=== PATIENT | male | born 1945 | race Caucasian/White ===

== ENCOUNTER 2025-03-23 15:14 | Inpatient (IN) | payer MEDICARE, BC, SELFPAY ==
[2025-03-23] VITALS (7 sets, daily range): BP systolic 111–121; BP diastolic 60–76; PULSE 66–75; RESP 16–99; TEMP 36.2–36.8; O2SAT 96–99
--- NOTE | 2025-03-23 15:17 | EKG_ITS ---
[facility] Test Date: 2025-03-23 Pat Name: CHINTAN RAZO Department: Room: - Gender: Male Medical Assistant Prn: : 1945 Requested By: Wilfrid Mcfarlane Order Number: [id number] Reading MD: Wilfrid Mcfarlane Measurements Intervals [place] Rate: 69 P: 97 UT: 177 QRS: -56 QRSD: 120 T: 72 QT: 374 QTc: 402 Interpretive Statements SINUS RHYTHM LEFT AXIS DEVIATION [QRS AXIS < -30] RIGHT BUNDLE BRANCH BLOCK [120+ ms QRS DURATION, UPRIGHT V1, 40+ ms S IN I/aVL/V4/V5/V6] No previous ECG available for comparison /[id number]/[id number]
--- NOTE | 2025-03-23 15:17 | XR_ITS ---
EXAMINATION: AP chest single view TECHNIQUE: AP portable upright chest single view Date and time: April 09, 2025, 1534 hours INDICATIONS: Coughing beginning 3 days ago. FINDINGS: Early bibasilar pneumonia. 9 mm pulmonary nodule right lower lung zone. Normal heart size CABG Prominent osteopenia IMPRESSION: Early bibasilar pneumonia
[2025-03-23] MEDS: SODIUM CHLORIDE 0.9% 1000 ML 1,000 ML 999 ML IV (15:29)
[2025-03-23 16:02] LABS: Basophils # (Auto) 0.0 Thou/mm3 (0.0-0.2); Basophils % (Auto) 0 % (0-2.5); Eosinophils # (Auto) 0.0 Thou/mm3 (0.0-0.5); Eosinophils % (Auto) 0 % (0-10); Hematocrit 27.9 % (41.0-53.0); Hemoglobin 9.0 g/dL (13.5-16.0); Immature Granulocytes Auto 0.07 Thou/mm3 (0.00-0.00); Lymphocytes # (Auto) 1.5 Thou/mm3 (1.0-4.8); Lymphocytes % (Auto) 10 % (10-50); Mean Corpuscular HGB Conc 32.3 g/dl (31.0-37.0); Mean Corpuscular Hemoglobin 29.0 pg (25.0-35.0); Mean Corpuscular Volume 90 fL (80-100); Monocytes # (Auto) 1.1 Thou/mm3 (0.0-0.8); Monocytes % (Auto) 7 % (0-12); Neutrophils # (Auto) 12.1 Thou/mm3 (1.8-7.7); Neutrophils % (Auto) 82 % (37-80); Nucleated Red Blood Cell # 0.00 Thou/mm3 (0.00-0.00); Nucleated Red Blood Cell % 0 /100 WBC (0); Platelet Count 557 Thou/mm3 (140-440); RDW Standard Deviation 45.3 fL (35.1-43.9); Red Blood Count 3.10 Miln/mm3 (4.50-5.90); White Blood Count 14.8 Thou/mm3 (3.8-10.6)
[2025-03-23 16:29] LABS: Alanine Aminotransferase 11 U/L (10-49); Albumin, Serum 3.2 gm/dL (3.4-4.8); Albumin/Globulin Ratio 1.4 (1.2-2.2); Alkaline Phosphatase 219 U/L (46-116); Anion Gap 10 (7-16); Aspartate Amino Transferase 52 U/L (0-34); BUN/Creatinine Ratio 23 Ratio (12-20); Bilirubin,Total < 0.2 mg/dL (0.3-1.2); Blood Urea Nitrogen 89 mg/dL (9-23); Calcium 8.0 mg/dL (8.3-10.6); Calcium (Corrected) 8.6 mg/dL (8.5-10.1); Carbon Dioxide 19.0 mMol/L (20.0-31.0); Chloride 113 mMol/L (98-107); Creatinine (Component) 3.9 mg/dL (0.6-1.3); Globulin 2.3 gm/dL (2.3-3.5); Glucose 185 mg/dL (74-106); Osmolality,Calculated 315 (275-295); Potassium 4.6 mMol/L (3.4-5.1); Sodium 142 mMol/L (136-145); Total Protein 5.5 gm/dL (5.7-8.2); eGFR 15 See Note
[2025-03-23 16:30] LABS: INR 1.2 (0.9-1.3); Partial Thromboplastin Time 34.2 Seconds (22.0-36.0); Prothrombin Time 12.3 Seconds (9.0-12.2)
[2025-03-23 16:31] LABS: Troponin I 0.066 ng/mL (0.0-0.045)
--- NOTE | 2025-03-23 16:53 | EDNOTE_ITS ---
ED General RME/HPI General Chief complaint: General Adult/Misc Complain Stated complaint: HYPOTENSION Time Seen by Provider: 03/23/25 15:16 Arrival date/time: 03/23/25 15:14 Limitations: no limitations RME / HPI RME / HPI narrative: 79 year old male with history of Parkinson's disease, TIA, CAD s/p CABG, CKD, anemia in CKD, hyperkalemia presents to the ED BIBA from [facility] for abnormal labs. Per medics, [place] reported patient had recent outpatient labs performed and were called today stating he may need dialysis for acute kidney injury. In the ED, patient has no complaints. Reports no change in fluid intake or output. Per medics, on scene patient was hypotensive 94/62 and given ~ 150-200cc of Lactated Ringers with improvement to 118/63. Related Data Allergies Allergy/AdvReac Type Severity Reaction Status Date / Time No Known Allergies Allergy Verified 03/23/25 15:26 Review of Systems Review of Systems Systems Reviewed: All systems reviewed, normal except as documented Past Medical History Past Medical History NEUROLOGIC: Positive Parkinson's Disease CARDIAC: Positive Cardiac Disorders and Congestive Heart Failure (Not sure) GENITOURINARY: Positive Renal Disease ENT: Positive Deafness (Hard of Hearing) Family History FAMILY HISTORY: Positive Family Cardiac Disorders Surgical History SURGICAL: Positive Cardiac Surgery, Coronary Artery Bypass Graft and Coronary Stent Social History SMOKING STATUS: Never smoker ED Exam General Limitations: Present no limitations General appearance: Present alert, in no apparent distress and other (Elderly, appears fatigued) Head Head exam: Present atraumatic Eye Eye exam: Present normal appearance, PERRL and EOMI ENT ENT exam: Present normal exam, normal oropharynx and mucous membranes moist Neck Neck exam: Present normal inspection, full ROM and trachea midline Chest Chest inspection: Present normal inspection and symmetric chest wall rise Respiratory Respiratory exam: Present normal lung sounds bilaterally Cardiovascular Cardiovascular exam: Present regular rate, normal rhythm and normal heart sounds Abdominal Exam Abdominal exam: Present soft and normal bowel sounds Extremities Exam Extremities exam: Present normal inspection and full ROM Back Exam Back exam: Present normal inspection and full ROM Neurological Exam Neurological exam: Present alert, oriented X3 and CN II-XII intact Psychiatric Psychiatric exam: Present normal affect and normal mood Skin Skin exam: Present warm, dry, intact and normal color Course Quality Measures none Orders Category Date Time Status COVID-19 Screening Questionnaire NOW Care 03/23/25 17:40 Active 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 NOW Care 03/23/25 15:17 Active Continuous Pulse Oximetry NOW Care 03/23/25 15:17 Completed Decision to Admit X1 Care 03/23/25 17:39 Active EKG (ED ONLY) *Do not use* NOW Care 03/23/25 15:17 Completed Insert IV NOW Care 03/23/25 15:17 Active Consult to Nephrology Stat Cons 03/23/25 17:40 Ordered EKG (ED Only) Stat Exams 03/23/25 15:17 Draft XR chest 1V portable Stat Exams 03/23/25 15:17 Completed CBC Stat Lab 03/23/25 15:53 Completed Comprehensive Metabolic Panel Stat Lab 03/23/25 15:53 Completed Partial Thromboplastin Time Stat Lab 03/23/25 15:53 Completed Prothrombin Time with INR Stat Lab 03/23/25 15:53 Completed Troponin I Stat Lab 03/23/25 15:53 Completed Troponin I Stat Lab 03/23/25 17:30 Ordered Urinalysis, C/S if Indicated Stat Lab 03/23/25 15:17 Ordered Sodium Chloride 0.9% 1000 ml [Ns] 1,000 ml Med 03/23/25 15:17 Discontinued IV 999 mls/hr Oxygen Delivery NOW RT 03/23/25 15:17 Active Vital Signs Vital signs: Vital Signs Temperature 97.5 F 03/23/25 15:14 Pulse Rate 72 03/23/25 15:14 Respiratory Rate 17 03/23/25 15:14 Blood Pressure 118/63 03/23/25 15:14 Pulse Oximetry (%) 99 03/23/25 15:14 Oxygen Delivery Method Room Air 03/23/25 15:14 Pulse ox is 99% on room air which is adequate. Discharge Plan Plan Patient Disposition: Admit Acute Care w/in Hospital Prescriptions/Referrals Referrals: Gómez Holly MD [Primary Care Provider] - In 1 week Problem List Clinical Impression: BARRETT (acute kidney injury), Dehydration, Fatigue, Anemia Patient/Caregiver Discharge Instructions Print Language: Spanish Stand Alone Forms: Kristina Award Info., Patient Portal Info Letter MDM Narrative MDM hospital course (for use when minimal MDM required): Mary Camargo am scribing for and in the presence of Dr. Bah. Clinical Information Provided by: patient and EMS Medical Records reviewed [facility] Meds/Rx considered, not ordered None Labs/Rad/Tests considered, not ordered None Chronic Illness/Social Conditions which may negatively complicate care or outcome(s)-explain: penitentiary/debilitated EKG Interpretation EKG #1: EKG Interpretation: EKG @ 15:27. Interpreted by me, sinus rhythm, rate 69, left axis deviation, no STEMI. Labs Labs: interpreted by me Lab(s) Interpretation(s): WBC 14.8, creatinine 3.9, BUN 89, eGFR 15, troponin 0.066 Imaging Imaging Interpretation(s): Ordering Physician: Wilfrid Bah MD Date of Service: 03/23/25 Procedure(s): XR chest 1V portable Accession Number(s): [id number] cc: Wilfrid Bah MD; Franco Schrader MD~ EXAMINATION: AP chest single view TECHNIQUE: AP portable upright chest single view Date and time: April 09, 2025, 1534 hours INDICATIONS: Coughing beginning 3 days ago. FINDINGS: Early bibasilar pneumonia. 9 mm pulmonary nodule right lower lung zone. Normal heart size CABG Prominent osteopenia IMPRESSION: Early bibasilar pneumonia Dictated By: Franco Schrader MD Signed By: <Electronically signed by Franco Schrader MD in OV> 03/23/25 1543 Medication Administration(s) Medication Administration History Discontinued Medications Sodium Chloride (Ns) 1,000 mls @ 999 mls/hr IV .Q1H1M ONE Stop: 03/23/25 16:17 Last Admin: 03/23/25 15:29 Dose: 999 mls/hr Documented By: DO See above Consultations/Discussions re: Management Consult #1: Date/time: 03/23/25 5:40 pm Physician, specialty, service, details: I spoke with hospitalist team A for admission.
[2025-03-23 18:14] LABS: Troponin I 0.066 ng/mL (0.0-0.045)
--- NOTE | 2025-03-23 18:19 | ESHP_ITS ---
<Statement entered by Nubia Mccord MD - 03/24/25 08:03> Patient was seen and examined by me personally. I have directly supervised and reviewed documentation by the team resident and agree with its findings with any exceptions or additional findings as below. Plan of care was discussed with the attending, Dr. Carreno. Nubia Mccord, PGY-3 Documentation for date of: 03/23/25 HPI History of Present Illness Chief complaint: Sent in by raise miner, BARRETT on CKD. History of present illness: Mr Vargas is a 79-year-old male with PMH significant for Parkinson?s disease, CAD s/p CABG and coronary stents, CKD with recurrent episodes of hyperkalemia, anemia of CKD, and recent hospitalization 3?4 weeks ago at [facility] for hyperkalemia and fluid overload, now residing at [facility]. He was sent to the ED today after outpatient labs were reviewed by raise miner Dr. Gordon showing worsening kidney function with concern for possible need for dialysis. He arrives with no acute complaints. He denies shortness of breath, cough, chest pain, abdominal pain, nausea, vomiting, dysuria, or urinary frequency. He reports a chronic daily headache but no new or focal neurological symptoms. He notes no recent falls. He is a poor historian; much of the history is provided by his nephew, who is also his surrogate decision-maker. Per nephew, his kidney function has been worsening for 8 months with two prior episodes of severe hyperkalemia. He recently became weaker, had swelling and difficulty ambulating, and was hospitalized at [facility] for 5 days before being transferred to [facility] 2 weeks ago. He has been treated for a UTI at the facility for the last 3?4 days. Caregivers also report increasing hallucinations and waxing/waning alertness. In the ED, BP initially low but improved with a small fluid bolus. Labs show creatinine 3.9 (unknown baseline), BUN 89, CO2 19, WBC 14.8, and early bibasilar pneumonia on CXR. He denies burning with urination. He is alert and oriented to self, place, and year but intermittently confused. No lower extremity edema noted. He has a chronic sacral/buttock pressure ulcer under wound-care management. Review of system: all systems negative unless stated in HPI: positive for headache, intermittent confusion, and chronic tremor; negative for fever, chills, cough, SOB, chest pain, abdominal pain, dysuria, hematuria, vomiting, diarrhea, constipation, weakness, numbness, or new swelling. Past Medical History: * Neurologic: Parkinson?s disease * Cardiac: Coronary artery disease, status post coronary artery bypass graft (CABG) and coronary stents * Renal: Chronic kidney disease (CKD), recurrent hyperkalemia * Hematologic: Anemia in CKD Allergies: * No known drug allergies (NKDA) Medications: * Carbidopa/levodopa (for Parkinson?s disease) * Atorvastatin 20 mg daily (half of 40 mg tablet) * Plavix 75 mg daily * Vitamin B12 * Vitamin D Surgical History: * Cardiac surgery: Coronary artery bypass graft (CABG) and coronary stents, approximately 5-6 years ago * No other significant surgeries reported Exam Vital Signs Temp Pulse Resp BP Pulse Ox O2 Del Method 97.8 F 66 16 116/66 98 Room Air 03/23/25 17:37 03/23/25 17:37 03/23/25 17:37 03/23/25 17:37 03/23/25 17:37 03/23/25 17:37 Narrative Exam General: Elderly male, fatigued, no acute distress. Neuro: Alert to self, place, and year; intermittently confused. Parkinsonian tremor and mild rigidity. No focal deficits. HEENT: Normocephalic, atraumatic. PERRL. Oral mucosa moist. Neck: No JVD. Supple. Cardiac: Regular rate and rhythm. No murmurs/rubs/gallops. Lungs: Clear to auscultation bilaterally. No wheezes/rales/rhonchi. Abdomen: Soft, non-tender, nondistended. Normal bowel sounds. Extremities: No peripheral edema. Pulses intact. Skin: Warm, dry. Chronic pressure ulcer to intergluteal crease?no drainage. Psych: Pleasant, cooperative. Hallucinations per history but none active during exam. : No suprapubic tenderness. Results: Labs 03/24/25 04:41 03/24/25 04:41 Labs: Short CBC 03/23/25 Range/Units 15:53 WBC 14.8 H (3.8-10.6) Thou/mm3 Hgb 9.0 L (13.5-16.0) g/dL Hct 27.9 L (41.0-53.0) % Plt Count 557 H (140-440) Thou/mm3 BMP 03/23/25 15:53 Sodium 142 Potassium 4.6 Chloride 113 H Carbon Dioxide 19.0 L BUN 89 H Creatinine 3.9 H Glucose 185 H Calcium 8.0 L Cardiac Enzymes 03/23/25 03/23/25 Range/Units 15:53 17:36 Troponin I 0.066 H* 0.066 H* (0.0-0.045) ng/mL Liver Function 03/23/25 Range/Units 15:53 Total Bilirubin < 0.2 L (0.3-1.2) mg/dL AST 52 H (0-34) U/L ALT 11 (10-49) U/L Alkaline Phosphatase 219 H (46-116) U/L Albumin 3.2 L (3.4-4.8) gm/dL Quality Measures Quality Measures VTE prophylaxis Advance care planning discussed with:: patient and legal surragate (nephew) Medications Home Medications and Allergies Home Medications ?Medication ?Instructions ?Recorded ?Confirmed ?Type atorvastatin 40 mg tablet (Lipitor) 40 mg PO QPM 03/2303/23/25 History carbidopa 25 mg-levodopa 100 mg 1 tab PO TID 03/23/25 03/23/25 History tablet clopidogrel 75 mg tablet 75 mg PO QDAY 03/23/2503/23 History Allergies Allergy/AdvReac Type Severity Reaction Status Date / Time No Known Allergies Allergy Verified 03/23/25 15:26 Visit Medications Acetaminophen (Acetaminophen 325 Mg Tablet) 650 mg PO Q6H PRN PRN Reason: Fever >100.4 or pain Stop: 04/22/25 18:11 Sodium Chloride (Ns) 1,000 mls @ 75 mls/hr IV .[id number] AVELINA Stop: 04/22/25 18:14 Ceftriaxone Sodium/Dextrose (Rocephin/D5w 1gm Iv Premix) 1 gm in 50 mls @ 100 mls/hr IV QDAY AVELINA Stop: 03/30/25 18:15 Ondansetron HCl (Ondansetron Inj 2 Mg/Ml Inj 2 Ml) 4 mg IVP Q6H PRN; Protocol PRN Reason: NAUSEA OR VOMITING Stop: 04/22/25 18:11 Pantoprazole Sodium (Pantoprazole 40 Mg Tablet) 40 mg PO QDAY AVELINA Stop: 04/23/25 08:59 Discontinued Medications Acetaminophen (Acetaminophen 325 Mg Tablet) 325 mg PO X1 ONE Stop: 03/23/25 18:12 Heparin Sodium (Porcine) (Heparin Sod Inj 5000 Unit/Ml Vial) 5,000 unit SC Q12HR AVELINA Stop: 04/06/25 20:59 Sodium Chloride (Ns) 1,000 mls @ 999 mls/hr IV .Q1H1M ONE Stop: 03/23/25 16:17 Last Admin: 03/23/25 15:29 Dose: 999 mls/hr Assessment & Plan Plan 79-year-old male with Parkinson?s disease, CAD s/p CABG and stents, CKD, anemia in CKD, and recurrent hyperkalemia presenting from [facility] for abnormal outpatient labs concerning for BARRETT; patient is hemodynamically stable with waxing/waning mentation and evidence of possible UTI and early bibasilar pneumonia. # Acute Kidney Injury on Chronic Kidney Disease Likely pre-renal vs progression of CKD Creatinine 3.9, BUN 89, CO2 19; unclear baseline. No nephrotoxic meds. Hypotension on arrival improved with fluids. Plan: * Strict I/Os * Continue patient on IV fluid NS 75 mL/h. * Will monitor for fluid overload. * Trend BMP q24 hrs * Avoid nephrotoxic medications * Hold Plavix and heparin DVT prophylaxis in case dialysis catheter is needed * Nephrology consult (Dr. Gordon) * Consider dialysis pending nephrology evaluation # Urinary Tract Infection (UTI) # Leukocytosis (14.8) # Pneumonia, Unspecified (Early Bibasilar Pneumonia) History of UTI treatment started 3?4 days ago at facility. Denies dysuria; confusion may be related to infection. No cough/SOB but radiographic findings present. Plan: * Continue Rocephin 1 g IV daily (covers both UTI and CAP) * Add azithromycin if clinically worsening * UA with culture * Trend CBC * Monitor O2 saturation * Monitor mental status # Elevated troponin (0.066) Troponin remains low (repeat was the same value of 0.066), consistent with no acute myocardial injury or NSTEMI at this time. EKG normal sinus rhythm. Plan: * Continue monitoring for any chest pain or changes in vital signs * Repeat troponin in 6 hours. # Parkinson?s Disease On carbidopa/levodopa at home. Increased hallucinations per caregivers. Plan: * Resume home carbidopa/levodopa once med reconciliation completed * Treat underlying infections that might be contributing to confusion # Anemia in CKD Hgb 9.0. Chronic per history. Plan: * Trend CBC * Check iron panel, B12, folate if not previously done * Transfuse PRN Hgb <7 # Chronic Headache Daily headaches per patient; no red flag features. Plan: * Tylenol PRN * Avoid NSAIDs due to BARRETT # Coronary Artery Disease s/p CABG and stents On statin and Plavix at home. 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 Plan: * Gentle IV fluids as needed while avoiding volume overload * Orthostatic vitals * PT while inpatient # Chronic Pressure Ulcer Longstanding in sacral region; under wound care. Plan: * Wound care consult * Continue current dressings Health maintenance: Disposition: Admit to medicine for further management of BARRETT, possible dialysis, UTI, early pneumonia, and cognitive fluctuations. Feeding: Cardiac diet, NPO after midnight Fluids: NS 75 mL/h. Thromboprophylaxis: Hold Plavix and heparin DVT prophylaxis temporarily pending nephrology decision regarding dialysis catheter. GI Prophylaxis: Protonix Code Status: DNR; patient and surrogate decision-maker (nephew) have confirmed. ----- Plan discussed with attending physician Dr. Carreno and senior resident Dr. Suri Leo MD PGY-1 Internal Medicine Attending Provider Attestation/Addendum I have examined the patient, reviewed labs and imaging findings, discussed the case with the resident(s), and reviewed entered orders. I agree with the plan of care as outlined in this note, with these additional summaries/recommendations: After examination of the patient and review of the clinical data, I feel that this patient needs admission to the hospital for further treatment and evaluation. Patient is a 79-year-old male with a medical history of Parkinson's disease on carbidopa/levodopa, CAD status post CABG and stent placements, CKD, anemia, pressure ulcer, autonomic dysfunction, and chronic headaches presents to [facility] emergency department on 03/23/2025 with chief complaint of abnormal labs. Patient reports he was seen by raise miner who recommended patient come to the emergency room for acute kidney injury on CKD. At this time baseline creatinine unknown. Creatinine on admission 3.9 and BUN 89. We will start low-dose maintenance fluids for BARRETT component likely secondary to dehydration. Consult in-house nephrology, recommendations appreciated. Avoid nephrotoxic agents and renally dose medications. Patient was found to have elevated troponin most likely troponinemia secondary to renal disease. Per patient's POA, he is actively being treated for urinary tract infection at this time. Chest x-ray shows early bibasilar pneumonia. Start IV antibiotics and follow-up culture results. Resume home carbidopa/levodopa. Wound care and frequent pressure redistribution to prevent worsening pressure ulcer. Patient updated on the plan and agreement. All questions answered to satisfaction. Please see residents note for additional details and management. Dr. Ev MD
[2025-03-23] MEDS: ACETAMINOPHEN 325 MG TABLET PO (18:36)
[2025-03-23] MEDS: cefTRIAXone/D5w 1gm IV premix 1 GM/50 ML BAG IV (18:37)
[2025-03-23] MEDS: SODIUM CHLORIDE 0.9% 1000 ML 1,000 ML 75 ML IV (18:38)
[2025-03-23 19:19] LABS: Iron 12 mcg/dL (65-175); Percent Iron Saturation 8 % (20-55); Total Iron Binding Capacity 139 mcg/dL (250-425); Unsaturated Iron Binding 127 (225-295)
[2025-03-23 19:41] LABS: Hepatitis A Antibody IgM Non Reactive (Non React); Hepatitis B Core Antibody IgM Non Reactive (Non React); Hepatitis B Surface Antigen Non Reactive (Non React); Hepatitis C Antibody Non Reactive (Non React)
[2025-03-23] MEDS: ATORVASTATIN CALCIUM 20 MG TABLET PO (21:01)
[2025-03-24] VITALS (11 sets, daily range): BP systolic 105–162; BP diastolic 59–89; PULSE 57–92; RESP 9–99; TEMP 36.2–36.8; O2SAT 95–97
[2025-03-24 01:00] LABS: Troponin I 0.066 ng/mL (0.0-0.045)
[2025-03-24 06:32] LABS: Basophils # (Auto) 0.1 Thou/mm3 (0.0-0.2); Basophils % (Auto) 0 % (0-2.5); Eosinophils # (Auto) 0.2 Thou/mm3 (0.0-0.5); Eosinophils % (Auto) 2 % (0-10); Hematocrit 25.6 % (41.0-53.0); Hemoglobin 8.0 g/dL (13.5-16.0); Immature Granulocytes Auto 0.05 Thou/mm3 (0.00-0.00); Lymphocytes # (Auto) 2.2 Thou/mm3 (1.0-4.8); Lymphocytes % (Auto) 16 % (10-50); Mean Corpuscular HGB Conc 31.3 g/dl (31.0-37.0); Mean Corpuscular Hemoglobin 29.4 pg (25.0-35.0); Mean Corpuscular Volume 94 fL (80-100); Monocytes # (Auto) 1.0 Thou/mm3 (0.0-0.8); Monocytes % (Auto) 7 % (0-12); Neutrophils # (Auto) 10.4 Thou/mm3 (1.8-7.7); Neutrophils % (Auto) 74 % (37-80); Nucleated Red Blood Cell # 0.00 Thou/mm3 (0.00-0.00); Nucleated Red Blood Cell % 0 /100 WBC (0); Platelet Count 768 Thou/mm3 (140-440); RDW Standard Deviation 47.0 fL (35.1-43.9); Red Blood Count 2.72 Miln/mm3 (4.50-5.90); White Blood Count 14.0 Thou/mm3 (3.8-10.6)
[2025-03-24 06:51] LABS: Alanine Aminotransferase 12 U/L (10-49); Albumin, Serum 2.8 gm/dL (3.4-4.8); Albumin/Globulin Ratio 1.2 (1.2-2.2); Alkaline Phosphatase 179 U/L (46-116); Aspartate Amino Transferase 48 U/L (0-34); BUN/Creatinine Ratio 23 Ratio (12-20); Bilirubin,Total < 0.2 mg/dL (0.3-1.2); Blood Urea Nitrogen 81 mg/dL (9-23); Calcium 7.8 mg/dL (8.3-10.6); Calcium (Corrected) 8.8 mg/dL (8.5-10.1); Cardiac Risk Estimate 3.1 RATIO (4.0-6.7); Chloride 117 mMol/L (98-107); Cholesterol 65 mg/dL (132-200); Creatinine (Component) 3.6 mg/dL (0.6-1.3); Globulin 2.3 gm/dL (2.3-3.5); Glucose 84 mg/dL (74-106); HDL Cholesterol 21 mg/dL (40-60); LDL Cholesterol,Calculated 33 mg/dL (0-130); Magnesium 2.1 mg/dL (1.6-2.6); Osmolality,Calculated 315 (275-295); Phosphorous 3.8 mg/dL (2.4-5.1); Potassium 4.7 mMol/L (3.4-5.1); Sodium 147 mMol/L (136-145); Thyroid Stimulating Hormone 1.38 uIU/mL (0.55-4.78); Total Protein 5.1 gm/dL (5.7-8.2); Triglycerides 57 mg/dL (30-150); eGFR 17 See Note
[2025-03-24 06:56] LABS: Path Review Blood Smear Sent to Pathologist
[2025-03-24 07:00] LABS: Carbon Dioxide 16.9 mMol/L (20.0-31.0); Folate 9.03 ng/mL (>5.38); Vitamin B12 1495 pg/mL (211-911)
[2025-03-24 07:10] LABS: Anion Gap 13 (7-16)
[2025-03-24 07:14] LABS: Troponin I 0.067 ng/mL (0.0-0.045)
[2025-03-24] MEDS: CARBIDOPA/LEVODOPA 25/100 MG TABLET 1 TAB PO ×3 (08:17→21:52)
[2025-03-24] MEDS: ACETAMINOPHEN 325 MG TABLET 650 MG PO ×2 (08:18→20:18)
[2025-03-24] MEDS: cefTRIAXone/D5w 1gm IV premix 1 GM/50 ML BAG IV (08:18)
[2025-03-24] MEDS: PANTOPRAZOLE 40 MG TABLET PO (08:18)
[2025-03-24] MEDS: SODIUM CHLORIDE 0.9% 1000 ML 1,000 ML 75 ML IV (08:21)
--- NOTE | 2025-03-24 09:11 | ESCONSULT_ITS ---
HPI Data of Consult Consult date: 03/24/25 Requesting Physician: Catrachito Carreno MD Admitting Provider: Catrachito Carreno MD Attending Provider: Catrachito Carreno MD Primary Care Provider: Gómez Holly MD Consult Narrative Reason for consult: BARRETT on CKD History of present illness: Mr Vargas is a 79-year-old male with PMH significant for Parkinson?s disease, CAD s/p CABG and coronary stents, CKD with recurrent episodes of hyperkalemia, anemia of CKD, and recent hospitalization 3?4 weeks ago at [facility] for hyperkalemia and fluid overload, now residing at [facility]. He was sent to the ED today after outpatient labs were reviewed by surgery attendant Dr. Gordon showing worsening kidney function with concern for possible need for dialysis. He arrives with no acute complaints. He denies shortness of breath, cough, chest pain, abdominal pain, nausea, vomiting, dysuria, or urinary frequency. He reports a chronic daily headache but no new or focal neurological symptoms. He notes no recent falls. He is a poor historian; much of the history is provided by his nephew, who is also his surrogate decision-maker. Per nephew, his kidney function has been worsening for 8 months with two prior episodes of severe hyperkalemia. He recently became weaker, had swelling and difficulty ambulating, and was hospitalized at [facility] for 5 days before being transferred to [facility] 2 weeks ago. He has been treated for a UTI at the facility for the last 3?4 days. Caregivers also report increasing hallucinations and waxing/waning alertness. 03/24/25: Nephrology consulted for BARRETT on CKD. Patient is relatively new to outpatient office and unclear creatinine baseline or kidney function. Per primary team is requesting records from [facility] admission. Patient seen examined at bedside. No complaints. Denies chest pain, palpitations, urinary symptoms, abdominal pain, N/V or fever/chills. IVF, creatinine improved to 2.6 from 3.9, BUN stable elevated 81. Plan to start half NS 1 L at 75 cc/hr, Bicitra 30 mL twice daily and renal diet. cc:: cc: Catrachito Carreno MD Review of Systems Review of Systems Systems Reviewed: All systems reviewed, normal except as documented Exam Vital Signs Temp Pulse Resp BP Pulse Ox O2 Del Method 97.1 F 92 24 H 141/89 H 95 Room Air 03/24/25 07:56 03/24/25 07:56 03/24/25 07:56 03/24/25 07:56 03/24/25 07:56 03/24/25 07:56 Narrative Exam GENERAL: AOx3 mild confusion, no acute distress, Parkinsons HEENT: mucous membranes moist, bilateral sclera anicteric CARDIOVASCULAR: regular rate and rhythm, S1/S2 present, no murmurs appreciated PULMONARY: clear to auscultation bilaterally, no rales/rhonchi/wheezes ABDOMINAL: soft, non-tender, non-distended, no rebound/guarding, bowel sounds present EXTREMITIES: no peripheral edema SKIN: warm and dry, chronic pressure ulcer intergluteal crease NEURO: CN II-XII grossly intact, no focal deficits, alert, following commands Results Labs 03/24/25 04:41 03/24/25 04:41 Labs: Short CBC 03/23/25 03/24/25 Range/Units 15:53 04:41 WBC 14.8 H 14.0 H (3.8-10.6) Thou/mm3 Hgb 9.0 L 8.0 L (13.5-16.0) g/dL Hct 27.9 L 25.6 L (41.0-53.0) % Plt Count 557 H 768 H D (140-440) Thou/mm3 BMP 03/23/25 03/24/25 15:53 04:41 Sodium 142 147 H Potassium 4.6 4.7 Chloride 113 H 117 H Carbon Dioxide 19.0 L 16.9 L BUN 89 H 81 H Creatinine 3.9 H 3.6 H Glucose 185 H 84 D Calcium 8.0 L 7.8 L Cardiac Enzymes 03/23/25 03/23/25 03/23/25 Range/Units 00:00 15:53 17:36 Troponin I 0.066 H* 0.066 H* 0.066 H* (0.0-0.045) ng/mL 03/24/25 Range/Units 04:41 Troponin I 0.067 H* (0.0-0.045) ng/mL Liver Function 03/23/25 03/24/25 Range/Units 15:53 04:41 Total Bilirubin < 0.2 L < 0.2 L (0.3-1.2) mg/dL AST 52 H 48 H (0-34) U/L ALT 11 12 (10-49) U/L Alkaline Phosphatase 219 H 179 H D (46-116) U/L Albumin 3.2 L 2.8 L (3.4-4.8) gm/dL Quality Measures Quality Measures VTE prophylaxis Advance care planning discussed with:: other Medications Home Medications and Allergies Home Medications ?Medication ?Instructions ?Recorded ?Confirmed ?Type atorvastatin 40 mg tablet (Lipitor) 40 mg PO QPM 03/2303/23/25 History carbidopa 25 mg-levodopa 100 mg 1 tab PO TID 03/23/25 03/23/25 History tablet clopidogrel 75 mg tablet 75 mg PO QDAY 03/23/2503/23 History Allergies Allergy/AdvReac Type Severity Reaction Status Date / Time No Known Allergies Allergy Verified 03/23/25 15:26 Visit Medications Acetaminophen (Acetaminophen 325 Mg Tablet) 650 mg PO Q6H PRN PRN Reason: Fever >100.4 or pain 1-3 Stop: 04/22/25 18:11 Last Admin: 03/24/25 08:18 Dose: 650 mg Atorvastatin Calcium (Atorvastatin Calcium 20 Mg Tablet) 20 mg PO HS AVELINA Stop: 04/22/25 20:59 Last Admin: 03/23/25 21:01 Dose: 20 mg Carbidopa/Levodopa (Carbidopa/Levodopa 25/100 Mg Tablet) 1 tab PO TID AVELINA Stop: 04/23/25 08:14 Last Admin: 03/24/25 08:17 Dose: 1 tab Citric Acid/Sodium Citrate (Citric Acid/Sodium Citr 15 Ml Udc (Bicitra)) 30 ml PO BID AVELINA Stop: 04/23/25 08:59 Clopidogrel Bisulfate (Clopidogrel Bisulfate 75 Mg Tablet) 75 mg PO QDAY AVELINA Stop: 04/23/25 08:59 Ceftriaxone Sodium/Dextrose (Rocephin/D5w 1gm Iv Premix) 1 gm in 50 mls @ 100 mls/hr IV QDAY AVELINA Stop: 03/30/25 18:15 Last Admin: 03/24/25 08:18 Dose: 100 mls/hr Sodium Chloride (Ns 0.45%) 1,000 mls @ 75 mls/hr IV .[id number] AVELINA Stop: 03/24/25 22:04 Ondansetron HCl (Ondansetron Inj 2 Mg/Ml Inj 2 Ml) 4 mg IVP Q6H PRN; Protocol PRN Reason: NAUSEA OR VOMITING Stop: 04/22/25 18:11 Pantoprazole Sodium (Pantoprazole 40 Mg Tablet) 40 mg PO QDAY AVELINA Stop: 04/23/25 08:59 Last Admin: 03/24/25 08:18 Dose: 40 mg Discontinued Medications Acetaminophen (Acetaminophen 325 Mg Tablet) 325 mg PO X1 ONE Stop: 03/23/25 18:12 Last Admin: 03/23/25 18:36 Dose: 325 mg Heparin Sodium (Porcine) (Heparin Sod Inj 5000 Unit/Ml Vial) 5,000 unit SC Q12HR AVELINA Stop: 04/06/25 20:59 Sodium Chloride (Ns) 1,000 mls @ 999 mls/hr IV .Q1H1M ONE Stop: 03/23/25 16:17 Last Infusion: 03/23/25 18:32 Dose: Infused Sodium Chloride (Ns) 1,000 mls @ 75 mls/hr IV .[id number] AVELINA Stop: 04/22/25 18:14 Last Admin: 03/24/25 08:21 Dose: 75 mls/hr Assessment & Plan Plan Branden Vargas 79M pmhx significant for Parkinson?s disease, CAD s/p CABG and stents on Plavix, CKD, anemia in CKD, and recurrent hyperkalemia presenting from [facility] for abnormal outpatient labs concerning for BARRETT, admitted for BARRETT, UTI and early bibasilar pneumonia. #BARRETT on CKD (unclear stage) Presented to the outpatient office with elevated creatinine and BUN. Patient relatively new to outpatient service and unclear baseline of creatinine GFR BUN. Primary team requesting records from [facility] hospitalization. On admission, creatinine 3.9, BUN 85, GFR 15. s/p 1L NS in ED with improvement in Cr to 3.6 and GFR 17. Ddx: progression of CKD to ESRD vs poor PO intake vs UTI Plan: - 1/2 NS 75 cc/hr for 1L, bicitra 30 mL BID, renal diet - Defer HD as Cr unclear baseline and prior CKD hx and as Cr improving with IVF, pending [facility] records - Defer Ulytes as patient is receiving IVF - Strict I&Os, daily weights, renally dose and avoid nephrotoxic meds - CTM Cr # Urinary Tract Infection (UTI) # Leukocytosis (14.8) # Pneumonia, Unspecified (Early Bibasilar Pneumonia) # Elevated troponin (0.066) # Parkinson?s Disease # Anemia in CKD # Chronic Headache # Coronary Artery Disease s/p CABG and stents # Orthostatic Hypotension # 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 Plan of care discussed with attending Dr. Gordon. Lashaun Gonsalez, DO PGY-1 Internal Medicine Attending Provider Attestation/Addendum patient seen and examined with resident physician Dr. Gonsalez. Note reviewed, agree with findings and recommendations. Patient currently seen in telemetry. Patient seems to have underlying CKD. Not quite sure what his baseline creatinine is he is [facility]. I saw him yesterday in my office and sent him for hypotension and severe azotemia. Continue with gentle IV fluids. Add Bicitra for metabolic acidosis. Hold off on dialysis. Suspected prerenal azotemia. Give IV iron. Renal ultrasound showed mild hydronephrosis and prostate mildly enlarged. He has a prevoid bladder 893. Merchant was inserted. Thank you Catrachito for allowing me to participate in the care of Mr. Otero
--- NOTE | 2025-03-24 09:19 | XR_ITS ---
Examination: Retroperitoneal ultrasound, complete Technique: Multiple high resolution grayscale images of the retroperitoneum obtained, including kidneys and bladder. Exam date and time: March 24, 2025, 1137 hours INDICATIONS: Acute renal insufficiency superimposed upon chronic kidney disease on laboratory examination this month. FINDINGS: Right kidney 10.6 cm renal cortex 1.5 cm Left kidney 10.8 cm renal cortex 2.5 cm Mild bilateral hydronephrosis Benign left renal cysts, the largest 34 mm Mild renal scar formation No bladder mass or bladder calculi Bladder prevoid volume 893 cc Prostate mildly enlarged volume 39 cc no prostate nodules IMPRESSION: Mild bilateral hydronephrosis
[2025-03-24] MEDS: CLOPIDOGREL BISULFATE 75 MG TABLET PO (09:55)
[2025-03-24] MEDS: SODIUM CHLORIDE 0.45 % 1,000 ML 75 ML IV (09:55)
[2025-03-24] MEDS: CITRIC ACID/SODIUM CITR 15 ML UDC (BICITRA) 30 ML PO ×2 (09:55→20:17)
[2025-03-24 11:47] LABS: Cocci Serology, IgM Negative (Negative)
--- NOTE | 2025-03-24 13:30 | ESPR_ITS ---
<Statement entered by Keny Galvez MD - 03/26/25 09:20> I have personally seen and examined the patient, agree with residents assessment and plan Patient plan of care was discussed with the attending physician, Dr. Ev Galvez, PGY2 Documentation for date of: 03/24/25 Subjective Subjective Interval history: Patient seen this morning at bedside, eating breakfast without difficulty. Alert and oriented, responding appropriately. Denies chest pain, shortness of breath, cough, abdominal pain, dysuria, dizziness, or hallucinations today. Only complaint is pain in the buttock area related to his chronic pressure ulcer. No difficulty swallowing. Denies swelling. Family (nephew) present at bedside in the afternoon, updated extensively on patient condition, including current kidney function, infection treatment, low hemoglobin, and nephrology recommendations. They verbalized understanding and agree with plan. [facility] records reviewed from 02/2025, which show: * Baseline creatinine approximately 2.5 * Echo from last month: normal EF 70%, mild LVH, mild valvular disease, no significant abnormalities No need to repeat echocardiogram this admission. Exam Vital Signs Temp Pulse Resp BP Pulse Ox O2 Del Method 97.4 F 65 20 105/59 L 97 Room Air 03/24/25 12:00 03/24/25 12:00 03/24/25 12:00 03/24/25 12:00 03/24/25 12:00 03/24/25 12:00 Narrative Exam General: Elderly male, fatigued, no acute distress. Neuro: Alert to self, place, and year; intermittently confused. Parkinsonian tremor and mild rigidity. No focal deficits. HEENT: Normocephalic, atraumatic. PERRL. Oral mucosa moist. Neck: No JVD. Supple. Cardiac: Regular rate and rhythm. No murmurs/rubs/gallops. Lungs: Clear to auscultation bilaterally. No wheezes/rales/rhonchi. Abdomen: Soft, non-tender, nondistended. Normal bowel sounds. Extremities: No peripheral edema. Pulses intact. Skin: Warm, dry. Chronic pressure ulcer to intergluteal crease?no drainage. Psych: Pleasant, cooperative. Hallucinations per history but none active during exam. : No suprapubic tenderness. Objective Labs 03/24/25 04:41 03/24/25 04:41 Labs: Laboratory Results - last 24 hr 03/23/25 03/23/25 03/23/25 00:00 15:53 17:36 WBC 14.8 H RBC 3.10 L Hgb 9.0 L Hct 27.9 L MCV 90 MCH 29.0 MCHC 32.3 RDW Std Deviation 45.3 H Plt Count 557 H Neut % (Auto) 82 H Lymph % (Auto) 10 [place] % (Auto) 7 Eos % (Auto) 0 Baso % (Auto) 0 Neut # (Auto) 12.1 H Lymph # (Auto) 1.5 [place] # (Auto) 1.1 H Eos # (Auto) 0.0 Baso # (Auto) 0.0 Immature Gran # (Auto) 0.07 H Absolute Nucleated RBC 0.00 Immature Gran % 1 H Nucleated RBC % 0 Smear Path Review PT 12.3 H INR 1.2 APTT 34.2 Sodium 142 Potassium 4.6 Chloride 113 H Carbon Dioxide 19.0 L Anion Gap 10 BUN 89 H Creatinine 3.9 H Estim Creat Clear Calc Not Performed. eGFR 15 L BUN/Creatinine Ratio 23 H Glucose 185 H Calculated Osmolality 315 H Calcium 8.0 L Corrected Calcium 8.6 Phosphorus Magnesium Iron 12 L TIBC 139 L Iron Saturation 8 L Unsat Iron Binding 127 L Total Bilirubin < 0.2 L AST 52 H ALT 11 Alkaline Phosphatase 219 H Troponin I 0.066 H* 0.066 H* 0.066 H* Total Protein 5.5 L Albumin 3.2 L Globulin 2.3 Albumin/Globulin Ratio 1.4 Triglycerides Cholesterol LDL Cholesterol, Calc HDL Cholesterol Cholesterol/HDL Ratio Vitamin B12 Folate TSH Coccidioides IgM Ab Hepatitis A IgM Ab Non Reactive Hep Bs Antigen Non Reactive Hep B Core IgM Ab Non Reactive Hepatitis C Antibody Non Reactive 03/24/25 03/24/25 04:41 04:55 WBC 14.0 H RBC 2.72 L Hgb 8.0 L Hct 25.6 L MCV 94 MCH 29.4 MCHC 31.3 RDW Std Deviation 47.0 H Plt Count 768 H D Neut % (Auto) 74 Lymph % (Auto) 16 [place] % (Auto) 7 Eos % (Auto) 2 Baso % (Auto) 0 Neut # (Auto) 10.4 H Lymph # (Auto) 2.2 [place] # (Auto) 1.0 H Eos # (Auto) 0.2 Baso # (Auto) 0.1 Immature Gran # (Auto) 0.05 H Absolute Nucleated RBC 0.00 Immature Gran % 0 Nucleated RBC % 0 Smear Path Review Sent to Pathologist PT INR APTT Sodium 147 H Potassium 4.7 Chloride 117 H Carbon Dioxide 16.9 L Anion Gap 13 BUN 81 H Creatinine 3.6 H Estim Creat Clear Calc Not Performed. eGFR 17 L BUN/Creatinine Ratio 23 H Glucose 84 D Calculated Osmolality 315 H Calcium 7.8 L Corrected Calcium 8.8 Phosphorus 3.8 Magnesium 2.1 Iron TIBC Iron Saturation Unsat Iron Binding Total Bilirubin < 0.2 L AST 48 H ALT 12 Alkaline Phosphatase 179 H D Troponin I 0.067 H* Total Protein 5.1 L Albumin 2.8 L Globulin 2.3 Albumin/Globulin Ratio 1.2 Triglycerides 57 Cholesterol 65 L LDL Cholesterol, Calc 33 HDL Cholesterol 21 L Cholesterol/HDL Ratio 3.1 L Vitamin B12 1495 H Folate 9.03 TSH 1.38 Coccidioides IgM Ab Negative Hepatitis A IgM Ab Hep Bs Antigen Hep B Core IgM Ab Hepatitis C Antibody Quality Measures Quality Measures VTE prophylaxis Advance care planning discussed with:: patient and legal surragate (nephew) Assessment & Plan Assessment Current Active Medications: Generic Name Dose Route Start Last Admin Trade Name Freq PRN Reason Stop Dose Admin Acetaminophen 650 mg 03/23/25 18:12 03/24/25 08:18 Acetaminophen 325 Mg Tablet PO 04/22/25 18:11 650 mg Q6H PRN Administration Fever >100.4 or pain 1-3 Atorvastatin Calcium 20 mg 03/23/25 21:00 03/23/25 21:01 Atorvastatin Calcium 20 Mg Tablet PO 04/22/25 20:59 20 mg HS AVELINA Administration Carbidopa/Levodopa 1 tab 03/24/25 08:15 03/24/25 08:17 Carbidopa/Levodopa 25/100 Mg Tablet PO 04/23/25 08:14 1 tab TID AVELINA Administration Citric Acid/Sodium Citrate 30 ml 03/24/25 09:00 03/24/25 09:55 Citric Acid/Sodium Citr 15 Ml Udc (Bicitra) PO 04/23/25 08:59 30 ml BID AVELINA Administration Clopidogrel Bisulfate 75 mg 03/24/25 09:00 03/24/25 09:55 Clopidogrel Bisulfate 75 Mg Tablet PO 04/23/25 08:59 75 mg QDAY AVELINA Administration Ceftriaxone Sodium/Dextrose 1 gm in 50 mls @ 100 mls/hr 03/23/25 18:16 03/24/25 08:18 Rocephin/D5w 1gm Iv Premix IV 03/30/25 18:15 100 mls/hr QDAY AVELINA Administration Sodium Chloride 1,000 mls @ 75 mls/hr 03/24/25 08:45 03/24/25 09:55 Ns 0.45% IV 03/24/25 22:04 75 mls/hr .[id number] AVELINA Administration Ondansetron HCl 4 mg 03/23/25 18:12 Ondansetron Inj 2 Mg/Ml Inj 2 Ml IVP 04/22/25 18:11 Q6H PRN NAUSEA OR VOMITING Protocol Pantoprazole Sodium 40 mg 03/24/25 09:00 03/24/25 08:18 Pantoprazole 40 Mg Tablet PO 04/23/25 08:59 40 mg QDAY AVELINA Administration Plan 79-year-old male with Parkinson?s disease, CKD stage 3?4 (baseline Cr ~2.5 per [facility] records), CAD s/p CABG/stents, anemia in CKD, recent UTI treatment, and prior hospitalization last month for BARRETT, now admitted for recurrent BARRETT with metabolic acidosis, leukocytosis, and radiographic bibasilar pneumonia; currently hemodynamically stable with improving renal function. # Acute Kidney Injury on Chronic Kidney Disease (baseline Cr ~2.5) -The patient has a known history of CKD stage 3?4 with an estimated baseline creatinine of 2.5 (from [facility] records). -The most recent labs show creatinine of 3.6, which is an improvement from 3.9 yesterday, and BUN of 81 (downtrending). -The GFR has increased to 17, showing slight improvement. -BARRETT likely triggered by infection (UTI and pneumonia), though prerenal factors (dehydration, hypotension) may also be contributing. -Troponin remains stable at 0.066, which is likely secondary to renal impairment. -Nephrology has opted not to initiate dialysis at this time and will continue to monitor renal function. Plan: * Continue close monitoring of kidney function, trend BMP daily * Resume Plavix today * Start Bicitra 30 mL BID for metabolic acidosis * Continue ? NS at 75 mL/hr for hydration * Avoid nephrotoxic medications * Nephrology consult for ongoing management # Urinary Tract Infection (UTI) # Leukocytosis (14.0) # Pneumonia, Unspecified (Early Bibasilar Pneumonia) History of UTI treatment started 3?4 days ago at facility. Denies dysuria; confusion may be related to infection. No cough/SOB but radiographic findings present. Plan: * Continue Rocephin 1 g IV daily (start 03/24- ), (covers both UTI and CAP) * Add azithromycin if clinically worsening * UA with culture * Trend CBC * Monitor O2 saturation * Monitor mental status # Anemia in CKD with Iron Deficiency Hemoglobin (Hgb) dropped to 8 (down from 9), consistent with anemia of CKD and iron deficiency (low iron, low TIBC, low iron saturation). This is likely contributing to the patient?s fatigue and weakness. Plan: * Trend CBC daily * Iron supplementation should be delayed until the infection resolves. * Transfuse PRN if Hgb <7 or symptomatic # Reactive Thrombocytosis (Plt 768) Platelet count is elevated to 768, likely a reactive process due to the current infection and inflammation (UTI and pneumonia). There is no history of primary thrombocytosis or malignancy at this time. Plan: * Trend platelet count in the AM. # Elevated troponin (0.066) Troponin remains stable at 0.066. Given his renal dysfunction, this is likely secondary to impaired renal clearance rather than acute myocardial injury. The patient denies chest pain and has no evidence of acute ischemic symptoms. EKG normal sinus rhythm. Plan: * No further trending of troponin unless new symptoms develop * Continue monitoring clinically # Parkinson?s Disease On carbidopa/levodopa at home. Increased hallucinations per caregivers. Plan: * Resumed home carbidopa/levodopa. * Treat underlying infections that might be contributing to confusion # Chronic Headache Daily headaches per patient; no red flag features. Plan: * Tylenol PRN * Avoid NSAIDs due to BARRETT # Coronary Artery Disease s/p CABG and stents On statin and Plavix at home. Plavix resumed today as per nephrology recommendations. Plan: * Continue atorvastatin 20 mg HS. * Resumed Plavix. * Monitor for chest pain. 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 Plan: * Gentle IV fluids as needed while avoiding volume overload * Orthostatic vitals pending * PT while inpatient # Chronic Pressure Ulcer Longstanding in sacral region; under wound care. Plan: * Wound care consult * Continue current dressings Health maintenance: Disposition: Admit to medicine for further management of BARRETT, possible dialysis, UTI, early pneumonia, and cognitive fluctuations. Feeding: Renal/cardiac diet. Fluids: 1/2 NS 75 mL/h. Thromboprophylaxis: Heparin GI Prophylaxis: Protonix Code Status: DNR; patient and surrogate decision-maker (nephew) have confirmed. ----- Plan discussed with attending physician Dr. Carreno and senior resident Dr. Lenny Leo MD PGY-1 Internal Medicine Attending Provider Attestation/Addendum I have examined the patient, reviewed labs and imaging findings, discussed the case with the resident(s), and reviewed entered orders. I agree with the plan of care as outlined in this note, with these additional summaries/recommendations: Patient is a 79-year-old male with a medical history of Parkinson's disease on carbidopa/levodopa, CAD status post CABG and stent placements, CKD, anemia, pressure ulcer, autonomic dysfunction, and chronic headaches who presents to [facility] emergency department on 03/23/2025 with chief complaint of abnormal labs. Patient reports he was seen by thread tool grinder set up operator who recommended patient come to the emergency room for acute kidney injury on CKD. Patient seen at bedside. No acute overnight events. Patient has no new symptoms to report today but does appear slightly anxious at baseline. Patient admitted for BARRETT on CKD versus CKD. Baseline creatinine unknown. BARRETT component likely prerenal. Presented with creatinine 3.9 and BUN 89. Started on IVF with improvement of creatinine to 3.6 and BUN 81 today. In-house nephrology following, recommendations appreciated. Avoid nephrotoxic agents and renally dose medications. We will follow-up if dialysis is needed. Patient was found to have elevated troponin most likely troponinemia secondary to renal disease. Per patient's POA, he is actively being treated for urinary tract infection at this time. Chest x-ray shows early bibasilar pneumonia. Leukocytosis present. Continue IV antibiotics and follow-up culture results. Continue home carbidopa/levodopa for PD. Wound care and frequent pressure redistribution to prevent worsening pressure ulcer. Patient updated on the plan and agreement. All questions answered to satisfaction. Please see residents note for additional details and management. Dr. Ev MD
--- NOTE | 2025-03-24 13:52 | PC.SS ---
Branden Vargas is 79-year-old male admitted to [facility] for BARRETT on CKD. SS conducted bedside contact with the patient to complete initial assessment and to discuss discharge planning. Role and reason explained. Patient confirmed demographic information. Patient identifies his nephew Nicho Hull [phone] as his surrogate decision maker. Pt is currently residing at [facility] and receiving PT. Pt can return per Kimberly/Filomena at [facility], SS inquired if pt wishes to return, in which he responded he will let SS know once he feels better and speaks to family. Pt may need outpt HD. Pending Dr. Gordon consult and recommendations. SS will remain available for any additional needs or concerns. DC plan: [facility] DM: Opal Torre PCP: Dr. Holly
--- NOTE | 2025-03-24 14:34 | PC.SS ---
Rounding: Nephrology consulting, Dr. Gordon, poss need for HD if pt beltran not progress on IV Fluids, dc plan [facility]
[2025-03-24 15:20] LABS: Collection Type, Urine Clean Catch; RBC,Urine 0 /hpf (0-3)
[2025-03-24 17:48] LABS: Bacteria,Urine Rare; Bilirubin,Urine Negative (Negative); Blood,Urine 2+ (Negative); Glucose, Urine Negative (Negative); Ketones,Urine Negative (Negative); Leukocyte Esterase,Urine Positive (Negative); Nitrite,Urine Negative (Negative); PH,Urine 6.0 (5.0-7.0); Protein,Urine 2+ (Neg - Trace); Specific Gravity,Urine 1.013 (1.001-1.035); Squamous Epithelial Cell,Urine 3 /hpf (0-5); Urobilinogen,Urine Negative mg/dL (0.0-1.0); WBC,Urine 3186 /hpf (0-5)
[2025-03-24 17:56] LABS: Clarity,Urine Cloudy (Clear/Hazy); Color,Urine Lt-Yellow (Lt Yel-Yel); Culture Indicated,Urine Yes
[2025-03-24] MEDS: BALSAM PERU/CASTOR OIL (Venelex) 60 GM TUBE TOP ×2 (18:12→20:17)
[2025-03-24] MEDS: ATORVASTATIN CALCIUM 20 MG TABLET PO (20:17)
[2025-03-25] VITALS (10 sets, daily range): BP systolic 104–129; BP diastolic 55–72; PULSE 60–73; RESP 16–97; TEMP 36.1–36.8; O2SAT 93–99
[2025-03-25] MEDS: CARBIDOPA/LEVODOPA 25/100 MG TABLET 1 TAB PO ×3 (05:54→21:26)
[2025-03-25 07:34] LABS: Basophils # (Auto) 0.1 Thou/mm3 (0.0-0.2); Basophils % (Auto) 1 % (0-2.5); Eosinophils # (Auto) 0.2 Thou/mm3 (0.0-0.5); Eosinophils % (Auto) 2 % (0-10); Hematocrit 25.2 % (41.0-53.0); Immature Granulocytes Auto 0.09 Thou/mm3 (0.00-0.00); Lymphocytes # (Auto) 2.2 Thou/mm3 (1.0-4.8); Lymphocytes % (Auto) 18 % (10-50); Mean Corpuscular HGB Conc 31.7 g/dl (31.0-37.0); Mean Corpuscular Hemoglobin 28.9 pg (25.0-35.0); Mean Corpuscular Volume 91 fL (80-100); Monocytes # (Auto) 0.8 Thou/mm3 (0.0-0.8); Monocytes % (Auto) 6 % (0-12); Neutrophils # (Auto) 9.2 Thou/mm3 (1.8-7.7); Neutrophils % (Auto) 73 % (37-80); Nucleated Red Blood Cell # 0.00 Thou/mm3 (0.00-0.00); Nucleated Red Blood Cell % 0 /100 WBC (0); Platelet Count 567 Thou/mm3 (140-440); RDW Standard Deviation 45.5 fL (35.1-43.9); Red Blood Count 2.77 Miln/mm3 (4.50-5.90); White Blood Count 12.5 Thou/mm3 (3.8-10.6)
[2025-03-25 07:50] LABS: Hemoglobin 8.0 g/dL (13.5-16.0)
[2025-03-25 07:56] LABS: Alanine Aminotransferase 9 U/L (10-49); Albumin, Serum 3.0 gm/dL (3.4-4.8); Albumin/Globulin Ratio 1.3 (1.2-2.2); Alkaline Phosphatase 177 U/L (46-116); Anion Gap 11 (7-16); Aspartate Amino Transferase 47 U/L (0-34); BUN/Creatinine Ratio 23 Ratio (12-20); Bilirubin,Total 0.2 mg/dL (0.3-1.2); Blood Urea Nitrogen 72 mg/dL (9-23); Calcium 8.0 mg/dL (8.3-10.6); Calcium (Corrected) 8.8 mg/dL (8.5-10.1); Carbon Dioxide 17.8 mMol/L (20.0-31.0); Chloride 117 mMol/L (98-107); Creatinine (Component) 3.2 mg/dL (0.6-1.3); Globulin 2.3 gm/dL (2.3-3.5); Glucose 88 mg/dL (74-106); Magnesium 2.1 mg/dL (1.6-2.6); Osmolality,Calculated 310 (275-295); Phosphorous 3.5 mg/dL (2.4-5.1); Potassium 4.5 mMol/L (3.4-5.1); Sodium 146 mMol/L (136-145); Total Protein 5.3 gm/dL (5.7-8.2); eGFR 19 See Note
[2025-03-25] MEDS: SENNA/DOCUSATE SOD 1 TAB TABLET PO (09:14)
[2025-03-25] MEDS: PANTOPRAZOLE 40 MG TABLET PO (09:14)
[2025-03-25] MEDS: CITRIC ACID/SODIUM CITR 15 ML UDC (BICITRA) 30 ML PO ×2 (09:15→21:26)
[2025-03-25] MEDS: cefTRIAXone/D5w 1gm IV premix 1 GM/50 ML BAG IV (09:15)
[2025-03-25] MEDS: BALSAM PERU/CASTOR OIL (Venelex) 60 GM TUBE TOP ×2 (09:15→21:26)
[2025-03-25] MEDS: CLOPIDOGREL BISULFATE 75 MG TABLET PO (09:17)
--- NOTE | 2025-03-25 10:14 | ESPR_ITS ---
Documentation for date of: 03/25/25 Subjective Subjective Interval history: Patient reports no bowel movement since yesterday. He denies any chest pain, shortness of breath, dizziness, or urinary symptoms. No difficulty swallowing and no new pain besides discomfort from his pressure ulcer. Eating and drinking are well tolerated. He is alert and oriented with no signs of acute confusion today. Exam Vital Signs Temp Pulse Resp BP Pulse Ox O2 Del Method 98.2 F 65 18 115/64 96 Room Air 03/25/25 07:47 03/25/25 08:00 03/25/25 07:47 03/25/25 07:47 03/25/25 07:47 03/25/25 07:47 Narrative Exam General: Elderly male, fatigued, no acute distress. Neuro: Alert to self, place, and year; intermittently confused. Parkinsonian tremor and mild rigidity. No focal deficits. HEENT: Normocephalic, atraumatic. PERRL. Oral mucosa moist. Neck: No JVD. Supple. Cardiac: Regular rate and rhythm. No murmurs/rubs/gallops. Lungs: Clear to auscultation bilaterally. No wheezes/rales/rhonchi. Abdomen: Soft, non-tender, nondistended. Normal bowel sounds. Extremities: No peripheral edema. Pulses intact. Skin: Warm, dry. Chronic pressure ulcer to intergluteal crease. Wound care following. Psych: Pleasant, cooperative. Hallucinations per history but none active during exam. : No suprapubic tenderness. Objective Labs 03/26/25 04:40 03/26/25 04:40 Labs: Laboratory Results - last 24 hr 03/24/25 03/24/25 03/25/25 04:55 13:54 07:14 WBC 12.5 H RBC 2.77 L Hgb 8.0 L Hct 25.2 L MCV 91 MCH 28.9 MCHC 31.7 RDW Std Deviation 45.5 H Plt Count 567 H D Neut % (Auto) 73 Lymph % (Auto) 18 [place] % (Auto) 6 Eos % (Auto) 2 Baso % (Auto) 1 Neut # (Auto) 9.2 H Lymph # (Auto) 2.2 [place] # (Auto) 0.8 Eos # (Auto) 0.2 Baso # (Auto) 0.1 Immature Gran # (Auto) 0.09 H Absolute Nucleated RBC 0.00 Immature Gran % 1 H Nucleated RBC % 0 Sodium 146 H Potassium 4.5 Chloride 117 H Carbon Dioxide 17.8 L Anion Gap 11 BUN 72 H Creatinine 3.2 H Estim Creat Clear Calc Not Performed. eGFR 19 L BUN/Creatinine Ratio 23 H Glucose 88 Calculated Osmolality 310 H Calcium 8.0 L Corrected Calcium 8.8 Phosphorus 3.5 Magnesium 2.1 Total Bilirubin 0.2 L AST 47 H ALT 9 L Alkaline Phosphatase 177 H Total Protein 5.3 L Albumin 3.0 L Globulin 2.3 Albumin/Globulin Ratio 1.3 Ur Collection Type Clean Catch Urine Color Lt-Yellow Urine Clarity Cloudy A Urine pH 6.0 Ur Specific [place] 1.013 Urine Protein 2+ A Urine Glucose (UA) Negative Urine Ketones Negative Urine Blood 2+ A Urine Nitrite Negative Urine Bilirubin Negative Urine Urobilinogen (Auto) Negative Ur Leukocyte Esterase Positive Urine RBC 0 Urine WBC 3186 H Ur Squamous Epith Cells 3 Urine Bacteria Rare Ur Culture Indicated? Yes Coccidioides IgM Ab Negative Quality Measures Quality Measures VTE prophylaxis Advance care planning discussed with:: patient Assessment & Plan Assessment Current Active Medications: Generic Name Dose Route Start Last Admin Trade Name Freq PRN Reason Stop Dose Admin Acetaminophen 650 mg 03/23/25 18:12 03/24/25 20:18 Acetaminophen 325 Mg Tablet PO 04/22/25 18:11 650 mg Q6H PRN Administration Fever >100.4 or pain 1-3 Atorvastatin Calcium 20 mg 03/23/25 21:00 03/24/25 20:17 Atorvastatin Calcium 20 Mg Tablet PO 04/22/25 20:59 20 mg HS AVELINA Administration Balsam [place] Oil 0 gm 03/24/25 15:15 03/25/25 09:15 Balsam [place] Oil (Venelex) 60 Gm Tube TOP 04/23/25 15:14 1 applicatio BID AVELINA Administration Carbidopa/Levodopa 1 tab 03/24/25 08:15 03/25/25 05:54 Carbidopa/Levodopa 25/100 Mg Tablet PO 04/23/25 08:14 1 tab TID AVELINA Administration Citric Acid/Sodium Citrate 30 ml 03/24/25 09:00 03/25/25 09:15 Citric Acid/Sodium Citr 15 Ml Udc (Bicitra) PO 04/23/25 08:59 30 ml BID AVELINA Administration Clopidogrel Bisulfate 75 mg 03/24/25 09:00 03/25/25 09:17 Clopidogrel Bisulfate 75 Mg Tablet PO 04/23/25 08:59 75 mg QDAY AVELINA Administration Ceftriaxone Sodium/Dextrose 1 gm in 50 mls @ 100 mls/hr 03/23/25 18:16 03/25/25 09:15 Rocephin/D5w 1gm Iv Premix IV 03/30/25 18:15 100 mls/hr QDAY AVELINA Administration Ondansetron HCl 4 mg 03/23/25 18:12 Ondansetron Inj 2 Mg/Ml Inj 2 Ml IVP 04/22/25 18:11 Q6H PRN NAUSEA OR VOMITING Protocol Pantoprazole Sodium 40 mg 03/24/25 09:00 03/25/25 09:14 Pantoprazole 40 Mg Tablet PO 04/23/25 08:59 40 mg QDAY AVELINA Administration Plan 79-year-old male with Parkinson?s disease, CKD, anemia in CKD, recent UTI, and pneumonia, presenting with improving renal function but persistent anemia, mild bilateral hydronephrosis, and ongoing bowel issues; currently stable with monitoring of renal status and infection. # Acute Kidney Injury on Chronic Kidney Disease (baseline Cr ~2.5) -The patient has a known history of CKD stage 3?4 with an estimated baseline creatinine of 2.5 (from [facility] records). -The most recent labs show creatinine of 3.2, which is an improvement from 3.9, and BUN of 72 (downtrending). -The GFR has increased to 19, showing slight improvement. -BARRETT likely triggered by infection (UTI and pneumonia), though prerenal factors (dehydration, hypotension) may also be contributing. -Troponin remains stable at 0.066, which is likely secondary to renal impairment. -Nephrology has opted not to initiate dialysis at this time and will continue to monitor renal function. Plan: * Continue close monitoring of kidney function, trend BMP daily * Continue Plavix. * Start Bicitra 30 mL BID for metabolic acidosis * Continue ? NS at 75 mL/hr for hydration * Avoid nephrotoxic medications * Nephrology consult for ongoing management # Urinary Tract Infection (UTI) # Leukocytosis (12.5), improving # Pneumonia, Unspecified (Early Bibasilar Pneumonia) History of UTI treatment started 3?4 days ago at facility. Denies dysuria; confusion may be related to infection. No cough/SOB but radiographic findings present. Plan: * Continue Rocephin 1 g IV daily (start 03/24- ), (covers both UTI and CAP) * Add azithromycin if clinically worsening * UA with 3000 white blood cells pending urine culture. * Trend CBC * Monitor O2 saturation * Monitor mental status # Anemia in CKD with Iron Deficiency Hemoglobin (Hgb) dropped to 8 (down from 9), consistent with anemia of CKD and iron deficiency (low iron, low TIBC, low iron saturation). This is likely contributing to the patient?s fatigue and weakness. Plan: * Trend CBC daily * Iron supplementation should be delayed until the infection resolves. * Transfuse PRN if Hgb <7 or symptomatic # Pulmonary Nodule (9 mm, Right Lower Lung Zone) Chest X-ray revealed a 9 mm pulmonary nodule in the right lower lung zone. No associated symptoms: patient denies cough, hemoptysis, weight loss, chest pain, or dyspnea. The nodule was detected incidentally and requires outpatient follow-up for definitive characterization. Plan: * Document finding in discharge summary to ensure outpatient follow-up. * Monitor for any new respiratory symptoms (cough, weight loss, fevers, hemoptysis). * No immediate intervention required inpatient # Mild Bilateral Hydronephrosis (Renal Ultrasound) Mild bilateral hydronephrosis noted on ultrasound, likely secondary to pre-renal causes (dehydration) vs possible obstructive component. The patient does not currently show signs of acute obstruction. Bladder scan showed 125 volume. Plan: * Monitor urine output and renal function closely * Follow-up imaging if symptoms worsen * Continue gentle hydration and adjust based on clinical status * Nephrology to continue management of BARRETT and hydronephrosis # Reactive Thrombocytosis (Plt 567) Platelet count down to 567 (from 768), still mildly elevated but improving. Likely reactive thrombocytosis secondary to infection and inflammation. Plan: * Trend platelet count in the AM. # Elevated troponin (0.066) Troponin remains stable at 0.066. Given his renal dysfunction, this is likely secondary to impaired renal clearance rather than acute myocardial injury. The patient denies chest pain and has no evidence of acute ischemic symptoms. EKG normal sinus rhythm. Plan: * No further trending of troponin unless new symptoms develop * Continue monitoring clinically # Parkinson?s Disease On carbidopa/levodopa at home. Increased hallucinations per caregivers. Plan: * Resumed home carbidopa/levodopa. * Treat underlying infections that might be contributing to confusion # Chronic Headache Daily headaches per patient; no red flag features. Plan: * Tylenol PRN * Avoid NSAIDs due to BARRETT # Coronary Artery Disease s/p CABG and stents On statin and Plavix at home. Plavix resumed today as per nephrology recommendations. Plan: * Continue atorvastatin 20 mg HS. * Resumed Plavix. * Monitor for chest pain. 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 Plan: * Gentle IV fluids as needed while avoiding volume overload * Orthostatic vitals negative * PT while inpatient # Chronic Pressure Ulcer Longstanding in sacral region; under wound care. Plan: * Wound care following * Continue current dressings Health maintenance: Disposition: Admit to medicine for further management of BARRETT, possible dialysis, UTI, early pneumonia, and cognitive fluctuations. Feeding: Renal/cardiac diet. Fluids: 1/2 NS 75 mL/h. Thromboprophylaxis: Heparin GI Prophylaxis: Protonix Code Status: DNR; patient and surrogate decision-maker (nephew) have confirmed. ----- Plan discussed with attending physician Dr. Ev Leo MD PGY-1 Internal Medicine Attending Provider Attestation/Addendum I have examined the patient, reviewed labs and imaging findings, discussed the case with the resident(s), and reviewed entered orders. I agree with the plan of care as outlined in this note, with these additional summaries/recommendations: Patient is a 79-year-old male with a medical history of Parkinson's disease on carbidopa/levodopa, CAD status post CABG and stent placements, CKD, anemia, pressure ulcer, autonomic dysfunction, and chronic headaches who presents to [facility] emergency department on 03/23/2025 with chief complaint of abnormal labs. Patient reports he was seen by unit assembler who recommended patient come to the emergency room for acute kidney injury on CKD. Patient seen at bedside. No acute overnight events. Patient admitted for BARRETT on CKD. Previous records obtained from [facility] showed creatinine of 2.5. On admission creatinine 3.9 and etiology for BARRETT component is most likely prerenal azotemia in the setting of poor oral intake. In-house nephrology following. Continue IVF. Continue bicitra. Patient also diagnosed with complicated urinary tract infection and bacterial pneumonia. Continue IV antibiotics. Urine culture still pending at this time. Patient was found to have elevated troponin on admission most likely secondary to demand ischemia. He has no complaints of chest pain or shortness of breath at this time. Continue home Plavix and atorvastatin. Pulmonary nodule noted on chest x-ray 9 mm in right lower lung and outpatient follow-up for continued surveillance. Continue home carbidopa/levodopa for Parkinson's disease. Continue pressure redistribution for pressure ulcer and wound care. Patient updated on the plan and agreement. All questions answered satisfaction. Please see residents note for additional details and management. Dr. Ev MD
--- NOTE | 2025-03-25 12:25 | PD.RESPRO ---
Documentation for date of: 03/25/25 Subjective Subjective Interval history: Mr Vragas is a 79-year-old male with PMH significant for Parkinson?s disease, CAD s/p CABG and coronary stents, CKD with recurrent episodes of hyperkalemia, anemia of CKD, and recent hospitalization 3?4 weeks ago at [facility] for hyperkalemia and fluid overload, now residing at [facility]. He was sent to the ED today after outpatient labs were reviewed by dentist/owner Dr. Gordon showing worsening kidney function with concern for possible need for dialysis. He arrives with no acute complaints. He denies shortness of breath, cough, chest pain, abdominal pain, nausea, vomiting, dysuria, or urinary frequency. He reports a chronic daily headache but no new or focal neurological symptoms. He notes no recent falls. He is a poor historian; much of the history is provided by his nephew, who is also his surrogate decision-maker. Per nephew, his kidney function has been worsening for 8 months with two prior episodes of severe hyperkalemia. He recently became weaker, had swelling and difficulty ambulating, and was hospitalized at [facility] for 5 days before being transferred to [facility] 2 weeks ago. He has been treated for a UTI at the facility for the last 3?4 days. Caregivers also report increasing hallucinations and waxing/waning alertness. 03/24/25: Nephrology consulted for BARRETT on CKD. Patient is relatively new to outpatient office and unclear creatinine baseline or kidney function. Per primary team is requesting records from [facility] admission. Patient seen examined at bedside. No complaints. Denies chest pain, palpitations, urinary symptoms, abdominal pain, N/V or fever/chills. IVF, creatinine improved to 2.6 from 3.9, BUN stable elevated 81. Plan to start half NS 1 L at 75 cc/hr, Bicitra 30 mL twice daily and renal diet. 03/25/25: Patient seen and examined at bedside. Patient has no new complaints to palpation at suprapubic region with firmness. Per [facility] records, baseline creatinine 2.5. Current creatinine decreased from 3.6?3.2. GFR mildly increased from 17-19. BUN downtrending as well now 72. Pending urine culture. Ordered half normal saline at 75 cc/hr for 1L. Ordered in and out catheter with bladder scan for residual. Exam Vital Signs Temp Pulse Resp BP Pulse Ox O2 Del Method 97.6 F 67 19 115/64 96 Room Air 03/25/25 12:00 03/25/25 12:00 03/25/25 12:00 03/25/25 12:00 03/25/25 12:00 03/25/25 12:00 Narrative Exam GENERAL: AOx3 mild confusion, no acute distress, Parkinsons HEENT: mucous membranes moist, bilateral sclera anicteric CARDIOVASCULAR: regular rate and rhythm, S1/S2 present, no murmurs appreciated PULMONARY: clear to auscultation bilaterally, no rales/rhonchi/wheezes ABDOMINAL: soft, non-distended, no rebound/guarding, bowel sounds present, suprapubic are mildly firm and TTP EXTREMITIES: no peripheral edema SKIN: warm and dry, chronic pressure ulcer intergluteal crease NEURO: CN II-XII grossly intact, no focal deficits, alert, following commands Objective Labs 03/26/25 04:40 03/26/25 04:40 Labs: Laboratory Results - last 24 hr 03/24/25 03/25/25 13:54 07:14 WBC 12.5 H RBC 2.77 L Hgb 8.0 L Hct 25.2 L MCV 91 MCH 28.9 MCHC 31.7 RDW Std Deviation 45.5 H Plt Count 567 H D Neut % (Auto) 73 Lymph % (Auto) 18 [place] % (Auto) 6 Eos % (Auto) 2 Baso % (Auto) 1 Neut # (Auto) 9.2 H Lymph # (Auto) 2.2 [place] # (Auto) 0.8 Eos # (Auto) 0.2 Baso # (Auto) 0.1 Immature Gran # (Auto) 0.09 H Absolute Nucleated RBC 0.00 Immature Gran % 1 H Nucleated RBC % 0 Sodium 146 H Potassium 4.5 Chloride 117 H Carbon Dioxide 17.8 L Anion Gap 11 BUN 72 H Creatinine 3.2 H Estim Creat Clear Calc Not Performed. eGFR 19 L BUN/Creatinine Ratio 23 H Glucose 88 Calculated Osmolality 310 H Calcium 8.0 L Corrected Calcium 8.8 Phosphorus 3.5 Magnesium 2.1 Total Bilirubin 0.2 L AST 47 H ALT 9 L Alkaline Phosphatase 177 H Total Protein 5.3 L Albumin 3.0 L Globulin 2.3 Albumin/Globulin Ratio 1.3 Ur Collection Type Clean Catch Urine Color Lt-Yellow Urine Clarity Cloudy A Urine pH 6.0 Ur Specific [place] 1.013 Urine Protein 2+ A Urine Glucose (UA) Negative Urine Ketones Negative Urine Blood 2+ A Urine Nitrite Negative Urine Bilirubin Negative Urine Urobilinogen (Auto) Negative Ur Leukocyte Esterase Positive Urine RBC 0 Urine WBC 3186 H Ur Squamous Epith Cells 3 Urine Bacteria Rare Ur Culture Indicated? Yes Quality Measures Quality Measures VTE prophylaxis Advance care planning discussed with:: other Assessment & Plan Assessment Current Active Medications: Generic Name Dose Route Start Last Admin Trade Name Freq PRN Reason Stop Dose Admin Acetaminophen 650 mg 03/23/25 18:12 03/24/25 20:18 Acetaminophen 325 Mg Tablet PO 04/22/25 18:11 650 mg Q6H PRN Administration Fever >100.4 or pain 1-3 Atorvastatin Calcium 20 mg 03/23/25 21:00 03/24/25 20:17 Atorvastatin Calcium 20 Mg Tablet PO 04/22/25 20:59 20 mg HS AVELINA Administration Balsam [place] Oil 0 gm 03/24/25 15:15 03/25/25 09:15 Balsam [place] Oil (Venelex) 60 Gm Tube TOP 04/23/25 15:14 1 applicatio BID AVELINA Administration Carbidopa/Levodopa 1 tab 03/24/25 08:15 03/25/25 05:54 Carbidopa/Levodopa 25/100 Mg Tablet PO 04/23/25 08:14 1 tab TID AVELINA Administration Citric Acid/Sodium Citrate 30 ml 03/24/25 09:00 03/25/25 09:15 Citric Acid/Sodium Citr 15 Ml Udc (Bicitra) PO 04/23/25 08:59 30 ml BID AVELINA Administration Clopidogrel Bisulfate 75 mg 03/24/25 09:00 03/25/25 09:17 Clopidogrel Bisulfate 75 Mg Tablet PO 04/23/25 08:59 75 mg QDAY AVELINA Administration Ceftriaxone Sodium/Dextrose 1 gm in 50 mls @ 100 mls/hr 03/23/25 18:16 03/25/25 09:15 Rocephin/D5w 1gm Iv Premix IV 03/30/25 18:15 100 mls/hr QDAY AVELINA Administration Ondansetron HCl 4 mg 03/23/25 18:12 Ondansetron Inj 2 Mg/Ml Inj 2 Ml IVP 04/22/25 18:11 Q6H PRN NAUSEA OR VOMITING Protocol Pantoprazole Sodium 40 mg 03/24/25 09:00 03/25/25 09:14 Pantoprazole 40 Mg Tablet PO 04/23/25 08:59 40 mg QDAY AVELINA Administration Plan Branden Vargas 79M pmhx significant for Parkinson?s disease, CAD s/p CABG and stents on Plavix, CKD, anemia in CKD, and recurrent hyperkalemia presenting from [facility] for abnormal outpatient labs concerning for BARRETT, admitted for BARRETT, UTI and early bibasilar pneumonia. #BARRETT on CKD (unclear stage) Presented to the outpatient office with elevated creatinine and BUN. Patient relatively new to outpatient service and unclear baseline of creatinine GFR BUN. Primary team requesting records from [facility] hospitalization. On admission, creatinine 3.9, BUN 85, GFR 15. s/p 1L NS in ED with improvement in Cr to 3.6 and GFR 17. Ddx: progression of CKD to ESRD vs poor PO intake vs UTI Plan: - /2 NS 75 cc/hr for another 1L, bicitra 30 mL BID, renal diet - Defer HD as Cr unclear baseline and prior CKD hx and as Cr improving with IVF - Defer Ulytes as patient is receiving IVF - Strict I&Os, daily weights, renally dose and avoid nephrotoxic meds - CTM Cr - In and out catheter x1 with bladder scan for residual although earlier # Urinary Tract Infection (UTI) # Leukocytosis (14.8) # Pneumonia, Unspecified (Early Bibasilar Pneumonia) # Elevated troponin (0.066) # Parkinson?s Disease # Anemia in CKD # Chronic Headache # Coronary Artery Disease s/p CABG and stents # Orthostatic Hypotension # 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 Plan of care discussed with attending Dr. Gordon. Lashaun Gonsalez, PGY-1 Internal Medicine Attending Provider Attestation/Addendum Patient seen and examined with resident physician Dr. Gonsalez. Note reviewed, agree with findings and recommendations. Admitted with BARRETT. Creatinine stable at 3.0. Continue gentle IV fluids
[2025-03-25] MEDS: SODIUM CHLORIDE 0.45 % 1,000 ML 75 ML IV (13:24)
[2025-03-25 14:06] LABS: Cocci Serology, IgG Negative (Negative)
--- NOTE | 2025-03-25 16:36 | PC.SS ---
Rounding note: Per Team A doctors, patient does not wish to return to [facility] and would like to be d/c to another facility.
[2025-03-25] MEDS: ATORVASTATIN CALCIUM 20 MG TABLET PO (21:26)
[2025-03-26] VITALS (8 sets, daily range): BP systolic 111–140; BP diastolic 60–77; PULSE 63–84; RESP 17–22; TEMP 36.6–37.1; O2SAT 95–97
[2025-03-26] MEDS: CARBIDOPA/LEVODOPA 25/100 MG TABLET 1 TAB PO ×3 (05:21→21:32)
[2025-03-26 05:40] LABS: Basophils # (Auto) 0.1 Thou/mm3 (0.0-0.2); Basophils % (Auto) 1 % (0-2.5); Eosinophils # (Auto) 0.1 Thou/mm3 (0.0-0.5); Eosinophils % (Auto) 1 % (0-10); Hematocrit 26.6 % (41.0-53.0); Immature Granulocytes Auto 0.05 Thou/mm3 (0.00-0.00); Lymphocytes # (Auto) 1.8 Thou/mm3 (1.0-4.8); Lymphocytes % (Auto) 16 % (10-50); Mean Corpuscular HGB Conc 32.0 g/dl (31.0-37.0); Mean Corpuscular Hemoglobin 29.4 pg (25.0-35.0); Mean Corpuscular Volume 92 fL (80-100); Monocytes # (Auto) 0.8 Thou/mm3 (0.0-0.8); Monocytes % (Auto) 7 % (0-12); Neutrophils # (Auto) 8.2 Thou/mm3 (1.8-7.7); Neutrophils % (Auto) 75 % (37-80); Nucleated Red Blood Cell # 0.00 Thou/mm3 (0.00-0.00); Nucleated Red Blood Cell % 0 /100 WBC (0); Platelet Count 547 Thou/mm3 (140-440); RDW Standard Deviation 45.7 fL (35.1-43.9); Red Blood Count 2.89 Miln/mm3 (4.50-5.90); White Blood Count 11.0 Thou/mm3 (3.8-10.6)
[2025-03-26 05:52] LABS: Hemoglobin 8.5 g/dL (13.5-16.0)
[2025-03-26 06:01] LABS: Alanine Aminotransferase 9 U/L (10-49); Albumin, Serum 2.8 gm/dL (3.4-4.8); Albumin/Globulin Ratio 1.1 (1.2-2.2); Alkaline Phosphatase 176 U/L (46-116); Anion Gap 9 (7-16); Aspartate Amino Transferase 57 U/L (0-34); BUN/Creatinine Ratio 21 Ratio (12-20); Bilirubin,Total 0.2 mg/dL (0.3-1.2); Blood Urea Nitrogen 62 mg/dL (9-23); Calcium 8.4 mg/dL (8.3-10.6); Calcium (Corrected) 9.4 mg/dL (8.5-10.1); Carbon Dioxide 20.6 mMol/L (20.0-31.0); Chloride 116 mMol/L (98-107); Creatinine (Component) 3.0 mg/dL (0.6-1.3); Globulin 2.6 gm/dL (2.3-3.5); Glucose 97 mg/dL (74-106); Magnesium 2.0 mg/dL (1.6-2.6); Osmolality,Calculated 308 (275-295); Phosphorous 3.5 mg/dL (2.4-5.1); Potassium 4.6 mMol/L (3.4-5.1); Sodium 146 mMol/L (136-145); Total Protein 5.4 gm/dL (5.7-8.2); eGFR 21 See Note
[2025-03-26] MEDS: PANTOPRAZOLE 40 MG TABLET PO (08:50)
[2025-03-26] MEDS: CLOPIDOGREL BISULFATE 75 MG TABLET PO (08:50)
[2025-03-26] MEDS: cefTRIAXone/D5w 1gm IV premix 1 GM/50 ML BAG IV (08:50)
[2025-03-26] MEDS: CITRIC ACID/SODIUM CITR 15 ML UDC (BICITRA) 30 ML PO ×2 (08:51→21:06)
[2025-03-26] MEDS: BALSAM PERU/CASTOR OIL (Venelex) 60 GM TUBE TOP ×2 (08:51→21:07)
--- NOTE | 2025-03-26 10:04 | PD.RESPRO ---
Documentation for date of: 03/26/25 Subjective Subjective Interval history: Mr Vargas is a 79-year-old male with PMH significant for Parkinson?s disease, CAD s/p CABG and coronary stents, CKD with recurrent episodes of hyperkalemia, anemia of CKD, and recent hospitalization 3?4 weeks ago at [facility] for hyperkalemia and fluid overload, now residing at [facility]. He was sent to the ED today after outpatient labs were reviewed by visual training aide Dr. Gordon showing worsening kidney function with concern for possible need for dialysis. He arrives with no acute complaints. He denies shortness of breath, cough, chest pain, abdominal pain, nausea, vomiting, dysuria, or urinary frequency. He reports a chronic daily headache but no new or focal neurological symptoms. He notes no recent falls. He is a poor historian; much of the history is provided by his nephew, who is also his surrogate decision-maker. Per nephew, his kidney function has been worsening for 8 months with two prior episodes of severe hyperkalemia. He recently became weaker, had swelling and difficulty ambulating, and was hospitalized at [facility] for 5 days before being transferred to [facility] 2 weeks ago. He has been treated for a UTI at the facility for the last 3?4 days. Caregivers also report increasing hallucinations and waxing/waning alertness. 03/24/25: Nephrology consulted for BARRETT on CKD. Patient is relatively new to outpatient office and unclear creatinine baseline or kidney function. Per primary team is requesting records from [facility] admission. Patient seen examined at bedside. No complaints. Denies chest pain, palpitations, urinary symptoms, abdominal pain, N/V or fever/chills. IVF, creatinine improved to 2.6 from 3.9, BUN stable elevated 81. Plan to start half NS 1 L at 75 cc/hr, Bicitra 30 mL twice daily and renal diet. 03/25/25: Patient seen and examined at bedside. Patient has no new complaints to palpation at suprapubic region with firmness. Per [facility] records, baseline creatinine 2.5. Current creatinine decreased from 3.6?3.2. GFR mildly increased from 17-19. BUN downtrending as well now 72. Pending urine culture. Ordered half normal saline at 75 cc/hr for 1L. Ordered in and out catheter with bladder scan for residual. 03/26/2025: Patient seen and examined at bedside. Patient denies any weakness, suprapubic tenderness, chest pain, shortness of breath and abdominal pain. BUN improved to 62 from 72 and creatinine unchanged at 3. NA 146. Free water deficit 1.6 L. Urine culture showed mixed tree, possible contamination. 1 L of 0.45% saline at 75 cc/h ordered. Once kidney function continues to remain stable anticipate discharge within next 24 hours to facility. Exam Vital Signs Temp Pulse Resp BP Pulse Ox O2 Del Method 97.8 F 81 18 118/77 97 Room Air 03/26/25 07:42 03/26/25 08:00 03/26/25 07:42 03/26/25 07:42 03/26/25 07:42 03/26/25 07:42 Narrative Exam GENERAL: AOx3 mild confusion, no acute distress, Parkinsons HEENT: mucous membranes moist, bilateral sclera anicteric CARDIOVASCULAR: regular rate and rhythm, S1/S2 present, no murmurs appreciated PULMONARY: clear to auscultation bilaterally, no rales/rhonchi/wheezes ABDOMINAL: soft, non-distended, no rebound/guarding, bowel sounds present, suprapubic area nontender to palpation EXTREMITIES: no peripheral edema SKIN: warm and dry, chronic pressure ulcer intergluteal crease NEURO: CN II-XII grossly intact, no focal deficits, alert, following commands Objective Labs 03/26/25 04:40 03/26/25 04:40 Labs: Laboratory Results - last 24 hr 03/24/25 03/26/25 04:55 04:40 WBC 11.0 H RBC 2.89 L Hgb 8.5 L Hct 26.6 L MCV 92 MCH 29.4 MCHC 32.0 RDW Std Deviation 45.7 H Plt Count 547 H Neut % (Auto) 75 Lymph % (Auto) 16 [place] % (Auto) 7 Eos % (Auto) 1 Baso % (Auto) 1 Neut # (Auto) 8.2 H Lymph # (Auto) 1.8 [place] # (Auto) 0.8 Eos # (Auto) 0.1 Baso # (Auto) 0.1 Immature Gran # (Auto) 0.05 H Absolute Nucleated RBC 0.00 Immature Gran % 1 H Nucleated RBC % 0 Sodium 146 H Potassium 4.6 Chloride 116 H Carbon Dioxide 20.6 Anion Gap 9 BUN 62 H Creatinine 3.0 H Estim Creat Clear Calc Not Performed. eGFR 21 L BUN/Creatinine Ratio 21 H Glucose 97 Calculated Osmolality 308 H Calcium 8.4 Corrected Calcium 9.4 Phosphorus 3.5 Magnesium 2.0 Total Bilirubin 0.2 L AST 57 H ALT 9 L Alkaline Phosphatase 176 H Total Protein 5.4 L Albumin 2.8 L Globulin 2.6 Albumin/Globulin Ratio 1.1 L Coccidioides IgG Ab Negative Quality Measures Quality Measures VTE prophylaxis Advance care planning discussed with:: patient Assessment & Plan Assessment Current Active Medications: Generic Name Dose Route Start Last Admin Trade Name Freq PRN Reason Stop Dose Admin Acetaminophen 650 mg 03/23/25 18:12 03/24/25 20:18 Acetaminophen 325 Mg Tablet PO 04/22/25 18:11 650 mg Q6H PRN Administration Fever >100.4 or pain 1-3 Atorvastatin Calcium 20 mg 03/23/25 21:00 03/25/25 21:26 Atorvastatin Calcium 20 Mg Tablet PO 04/22/25 20:59 20 mg HS AVELINA Administration Balsam [place] Oil 0 gm 03/24/25 15:15 03/26/25 08:51 Balsam [place] Oil (Venelex) 60 Gm Tube TOP 04/23/25 15:14 1 applicatio BID AVELINA Administration Carbidopa/Levodopa 1 tab 03/24/25 08:15 03/26/25 05:21 Carbidopa/Levodopa 25/100 Mg Tablet PO 04/23/25 08:14 1 tab TID AVELINA Administration Citric Acid/Sodium Citrate 30 ml 03/24/25 09:00 03/26/25 08:51 Citric Acid/Sodium Citr 15 Ml Udc (Bicitra) PO 04/23/25 08:59 30 ml BID AVELINA Administration Clopidogrel Bisulfate 75 mg 03/24/25 09:00 03/26/25 08:50 Clopidogrel Bisulfate 75 Mg Tablet PO 04/23/25 08:59 75 mg QDAY AVELINA Administration Ceftriaxone Sodium/Dextrose 1 gm in 50 mls @ 100 mls/hr 03/23/25 18:16 03/26/25 08:50 Rocephin/D5w 1gm Iv Premix IV 03/30/25 18:15 100 mls/hr QDAY AVELINA Administration Sodium Chloride 1,000 mls @ 75 mls/hr 03/26/25 09:54 Ns 0.45% IV 03/26/25 23:13 .[id number] ONE Ondansetron HCl 4 mg 03/23/25 18:12 Ondansetron Inj 2 Mg/Ml Inj 2 Ml IVP 04/22/25 18:11 Q6H PRN NAUSEA OR VOMITING Protocol Pantoprazole Sodium 40 mg 03/24/25 09:00 03/26/25 08:50 Pantoprazole 40 Mg Tablet PO 04/23/25 08:59 40 mg QDAY AVELINA Administration Polyethylene Glycol 17 gm 03/26/25 09:45 Polyethylene Glycol 17 Gm Packet PO 04/25/25 09:44 QDAY AVELINA Tamsulosin HCl 0.4 mg 03/26/25 09:45 Tamsulosin Hcl 0.4 Mg Capsule PO 04/25/25 09:44 QDAY AVELINA Plan Branden Vargas 79M pmhx significant for Parkinson?s disease, CAD s/p CABG and stents on Plavix, CKD, anemia in CKD, and recurrent hyperkalemia presenting from [facility] for abnormal outpatient labs concerning for BARRETT, admitted for BARRETT, UTI and early bibasilar pneumonia. #BARRETT on CKD (unclear stage) Presented to the outpatient office with elevated creatinine and BUN. Patient relatively new to outpatient service and unclear baseline of creatinine GFR BUN. Primary team requesting records from [facility] hospitalization. On admission, creatinine 3.9, BUN 85, GFR 15. s/p 1L NS in ED with improvement in Cr to 3.6 and GFR 17. 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 Plan of care discussed with Attending Dr. Heidi Cardona MD PGY 2 Disclaimer: This note was dictated by speech recognition. Minor errors in butcher assistant may be present due to voice recognition software. Attending Provider Attestation/Addendum Patient seen and examined with resident physician Dr. Cardona. Note reviewed, agree with findings and recommendations. Admitted with BARRETT. Creatinine stable at 3.0. Continue gentle IV fluids
[2025-03-26] MEDS: POLYETHYLENE GLYCOL 17 GM PACKET PO (10:13)
[2025-03-26] MEDS: TAMSULOSIN HCL 0.4 MG CAPSULE PO (10:13)
[2025-03-26] MEDS: SODIUM CHLORIDE 0.45 % 1,000 ML 75 ML IV (10:16)
--- NOTE | 2025-03-26 15:09 | ESPR_ITS ---
Documentation for date of: 03/26/25 Subjective Subjective Interval history: Patient is seen and examined at bedside patient is seen and examined at bedside. Overnight, patient noted to have urinary retention for which a In and out catheterization is done and drained 500 mL of urine. Denies any other complaints. Labs done this morning showed downtrending WBC 11, creatinine 3 which is downtrending Patient was started on tamsulosin 0.4 mg once daily for the urinary retention. Noted to have urinary retention again in the afternoon for which Parker catheter was placed Mild discharge patient with Parker catheter in situ and with iron supplements. Exam Vital Signs Temp Pulse Resp BP Pulse Ox O2 Del Method 98.8 F 65 22 H 122/63 96 Room Air 03/26/25 11:51 03/26/25 12:00 03/26/25 11:51 03/26/25 11:51 03/26/25 11:51 03/26/25 11:51 Narrative Exam GENERAL: AOx3 mild confusion, no acute distress, Parkinsons HEENT: mucous membranes moist, bilateral sclera anicteric CARDIOVASCULAR: regular rate and rhythm, S1/S2 present, no murmurs appreciated PULMONARY: clear to auscultation bilaterally, no rales/rhonchi/wheezes ABDOMINAL: soft, non-distended, no rebound/guarding, bowel sounds present, s uprapubic area nontender to palpation EXTREMITIES: no peripheral edema SKIN: warm and dry, chronic pressure ulcer intergluteal crease NEURO: CN II-XII grossly intact, no focal deficits, alert, following commands Objective Labs 03/26/25 04:40 03/26/25 04:40 Labs: Laboratory Results - last 24 hr 03/26/25 04:40 WBC 11.0 H RBC 2.89 L Hgb 8.5 L Hct 26.6 L MCV 92 MCH 29.4 MCHC 32.0 RDW Std Deviation 45.7 H Plt Count 547 H Neut % (Auto) 75 Lymph % (Auto) 16 [place] % (Auto) 7 Eos % (Auto) 1 Baso % (Auto) 1 Neut # (Auto) 8.2 H Lymph # (Auto) 1.8 [place] # (Auto) 0.8 Eos # (Auto) 0.1 Baso # (Auto) 0.1 Immature Gran # (Auto) 0.05 H Absolute Nucleated RBC 0.00 Immature Gran % 1 H Nucleated RBC % 0 Sodium 146 H Potassium 4.6 Chloride 116 H Carbon Dioxide 20.6 Anion Gap 9 BUN 62 H Creatinine 3.0 H Estim Creat Clear Calc Not Performed. eGFR 21 L BUN/Creatinine Ratio 21 H Glucose 97 Calculated Osmolality 308 H Calcium 8.4 Corrected Calcium 9.4 Phosphorus 3.5 Magnesium 2.0 Total Bilirubin 0.2 L AST 57 H ALT 9 L Alkaline Phosphatase 176 H Total Protein 5.4 L Albumin 2.8 L Globulin 2.6 Albumin/Globulin Ratio 1.1 L Quality Measures Quality Measures VTE prophylaxis Advance care planning discussed with:: patient Assessment & Plan Assessment Current Active Medications: Generic Name Dose Route Start Last Admin Trade Name Freq PRN Reason Stop Dose Admin Acetaminophen 650 mg 03/23/25 18:12 03/24/25 20:18 Acetaminophen 325 Mg Tablet PO 04/22/25 18:11 650 mg Q6H PRN Administration Fever >100.4 or pain 1-3 Atorvastatin Calcium 20 mg 03/23/25 21:00 03/25/25 21:26 Atorvastatin Calcium 20 Mg Tablet PO 04/22/25 20:59 20 mg HS AVELINA Administration Balsam Torie/[place] Oil 0 gm 03/24/25 15:15 03/26/25 08:51 Balsam [place] Oil (Venelex) 60 Gm Tube TOP 04/23/25 15:14 1 applicatio BID AVELINA Administration Carbidopa/Levodopa 1 tab 03/24/25 08:15 03/26/25 13:56 Carbidopa/Levodopa 25/100 Mg Tablet PO 04/23/25 08:14 1 tab TID AVELINA Administration Citric Acid/Sodium Citrate 30 ml 03/24/25 09:00 03/26/25 08:51 Citric Acid/Sodium Citr 15 Ml Udc (Bicitra) PO 04/23/25 08:59 30 ml BID AVELINA Administration Clopidogrel Bisulfate 75 mg 03/24/25 09:00 03/26/25 08:50 Clopidogrel Bisulfate 75 Mg Tablet PO 04/23/25 08:59 75 mg QDAY AVELINA Administration Ceftriaxone Sodium/Dextrose 1 gm in 50 mls @ 100 mls/hr 03/23/25 18:16 03/26/25 08:50 Rocephin/D5w 1gm Iv Premix IV 03/30/25 18:15 100 mls/hr QDAY AVELINA Administration Sodium Chloride 1,000 mls @ 75 mls/hr 03/26/25 09:54 03/26/25 10:16 Ns 0.45% IV 03/26/25 23:13 75 mls/hr .[id number] Administration Ondansetron HCl 4 mg 03/23/25 18:12 Ondansetron Inj 2 Mg/Ml Inj 2 Ml IVP 04/22/25 18:11 Q6H PRN NAUSEA OR VOMITING Protocol Pantoprazole Sodium 40 mg 03/24/25 09:00 03/26/25 08:50 Pantoprazole 40 Mg Tablet PO 04/23/25 08:59 40 mg QDAY AVELINA Administration Polyethylene Glycol 17 gm 03/26/25 09:45 03/26/25 10:13 Polyethylene Glycol 17 Gm Packet PO 04/25/25 09:44 17 gm QDAY AVELINA Administration Tamsulosin HCl 0.4 mg 03/26/25 09:45 03/26/25 10:13 Tamsulosin Hcl 0.4 Mg Capsule PO 04/25/25 09:44 0.4 mg QDAY AVELINA Administration Plan 79-year-old male with Parkinson?s disease, CKD, anemia in CKD, recent UTI, and pneumonia, presenting with improving renal function but persistent anemia, mild bilateral hydronephrosis, and ongoing bowel issues; currently stable with monitoring of renal status and infection. # Acute Kidney Injury on Chronic Kidney Disease (baseline Cr ~2.5) -The patient has a known history of CKD stage 3?4 with an estimated baseline creatinine of 2.5 (from [facility] records). -The most recent labs show creatinine of 3.2, which is an improvement from 3.9, and BUN of 72 (downtrending). -The GFR has increased to 19, showing slight improvement. -BARRETT likely triggered by infection (UTI and pneumonia), though prerenal factors (dehydration, hypotension) may also be contributing. -Troponin remains stable at 0.066, which is likely secondary to renal impairment. -Nephrology has opted not to initiate dialysis at this time and will continue to monitor renal function. Plan: * Continue close monitoring of kidney function, trend BMP daily * Continue Plavix. * Start Bicitra 30 mL BID for metabolic acidosis * Continue ? NS at 75 mL/hr for hydration * Avoid nephrotoxic medications * Nephrology consult for ongoing management # Urinary Tract Infection (UTI) # Leukocytosis (12.5), improving # Pneumonia, Unspecified (Early Bibasilar Pneumonia) History of UTI treatment started 3?4 days ago at facility. Denies dysuria; confusion may be related to infection. No cough/SOB but radiographic findings present. Plan: * Continue Rocephin 1 g IV daily (start 03/24- ), (covers both UTI and CAP) * Add azithromycin if clinically worsening * UA with 3000 white blood cells, no growth on urine culture, likely due to previous antibiotic usage. * Trend CBC * Monitor O2 saturation * Monitor mental status # Anemia in CKD with Iron Deficiency Hemoglobin (Hgb) dropped to 8 (down from 9), consistent with anemia of CKD and iron deficiency (low iron, low TIBC, low iron saturation). This is likely contributing to the patient?s fatigue and weakness. Plan: * Trend CBC daily * Iron supplementation should be delayed until the infection resolves. * Transfuse PRN if Hgb <7 or symptomatic # Pulmonary Nodule (9 mm, Right Lower Lung Zone) Chest X-ray revealed a 9 mm pulmonary nodule in the right lower lung zone. No associated symptoms: patient denies cough, hemoptysis, weight loss, chest pain, or dyspnea. The nodule was detected incidentally and requires outpatient follow-up for definitive characterization. Plan: * Document finding in discharge summary to ensure outpatient follow-up. * Monitor for any new respiratory symptoms (cough, weight loss, fevers, hemoptysis). * No immediate intervention required inpatient # Mild Bilateral Hydronephrosis (Renal Ultrasound) # Urinary retention - BPH Vs Neurogenic bladder from parkinsons Mild bilateral hydronephrosis noted on ultrasound, likely secondary to pre-renal causes (dehydration) vs possible obstructive component. The patient does not currently show signs of acute obstruction. Bladder scan showed 1L volume as of 03/26. Plan: * Monitor urine output and renal function closely * Placed parker catheter and started on Tamsulosin 0.4mg once daily. * Continue gentle hydration and adjust based on clinical status * Nephrology to continue management of BARRETT. # Reactive Thrombocytosis (Plt 567), Downtrending Platelet count down to 567 (from 768), still mildly elevated but improving. Likely reactive thrombocytosis secondary to infection and inflammation. Plan: * Trend platelet count in the AM. # Elevated troponin (0.066) Troponin remains stable at 0.066. Given his renal dysfunction, this is likely secondary to impaired renal clearance rather than acute myocardial injury. The patient denies chest pain and has no evidence of acute ischemic symptoms. EKG normal sinus rhythm. Plan: * No further trending of troponin unless new symptoms develop * Continue monitoring clinically # Parkinson?s Disease On carbidopa/levodopa at home. Increased hallucinations per caregivers. Plan: * Resumed home carbidopa/levodopa. * Treat underlying infections that might be contributing to confusion # Chronic Headache Daily headaches per patient; no red flag features. Plan: * Tylenol PRN * Avoid NSAIDs due to BARRETT # Coronary Artery Disease s/p CABG and stents On statin and Plavix at home. Plavix resumed today as per nephrology recommendations. Plan: * Continue atorvastatin 20 mg HS. * Resumed Plavix. * Monitor for chest pain. 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 Plan: * Gentle IV fluids as needed while avoiding volume overload * Orthostatic vitals negative * PT while inpatient # Chronic Pressure Ulcer Longstanding in sacral region; under wound care. Plan: * Wound care following * Continue current dressings Health maintenance: Disposition: Admit to medicine for further management of BARRETT, possible dialysis, UTI, early pneumonia, and cognitive fluctuations. Feeding: Renal/cardiac diet. Fluids: 1/2 NS 75 mL/h. Thromboprophylaxis: Heparin GI Prophylaxis: Protonix Code Status: DNR; patient and surrogate decision-maker (nephew) have confirmed. Patient plan of care was discussed with the attending physician, Dr. Ev Galvez, PGY2 Attending Provider Attestation/Addendum I have examined the patient, reviewed labs and imaging findings, discussed the case with the resident(s), and reviewed entered orders. I agree with the plan of care as outlined in this note, with these additional summaries/recommendations: Patient is a 79-year-old male with a medical history of Parkinson's disease on carbidopa/levodopa, CAD status post CABG and stent placements, CKD, anemia, pressure ulcer, autonomic dysfunction, and chronic headaches who presents to [facility] emergency department on 03/23/2025 with chief complaint of abnormal labs. Patient reports he was seen by dock builder who recommended patient come to the emergency room for acute kidney injury on CKD. Patient seen at bedside. No acute overnight events. Bladder scan was performed patient was found to be retaining urine with approximately 1 L. Indwelling Parker catheter placed. Etiology likely neurogenic bladder from PD versus BPH. Patient started on Flomax. He will need outpatient follow-up with urology. Patient admitted for BARRETT on CKD. Previous records obtained from [facility] showed creatinine of 2.5. On admission creatinine 3.9 and etiology for BARRETT component is most likely prerenal azotemia in the setting of poor oral intake. In-house nephrology following. Continue IVF. Continue bicitra. Patient also diagnosed with complicated urinary tract infection and bacterial pneumonia. Continue IV antibiotics. Urine culture returned negative although patient received antibiotics prior to culture and likely not reliable. Patient was found to have elevated troponin on admission most likely secondary to demand ischemia. He has no complaints of chest pain or shortness of breath at this time. Continue home Plavix and atorvastatin. Pulmonary nodule noted on chest x-ray 9 mm in right lower lung and outpatient follow-up for continued surveillance. Continue home carbidopa/levodopa for Parkinson's disease. Continue pressure redistribution for pressure ulcer and wound care. Patient updated on the plan and agreement. All questions answered satisfaction. Please see residents note for additional details and management. Dr. Ev MD
--- NOTE | 2025-03-26 16:16 | PC.SS ---
Rounding: bladder scan tomorrow, patient does not want to return to SNF, SS to follow up on Thursday.
[2025-03-26] MEDS: ACETAMINOPHEN 325 MG TABLET 650 MG PO (17:08)
[2025-03-26] MEDS: ATORVASTATIN CALCIUM 20 MG TABLET PO (21:05)
[2025-03-27] VITALS: BP 117/65; PULSE 61; PULSE 67; RESP 18; TEMP 36.7; O2SAT 97
[2025-03-27 04:00] VITALS: PULSE 89
[2025-03-27 08:00] VITALS: PULSE 67; PULSE 83; RESP 17; TEMP 36.6; O2SAT 94
[2025-03-27] MEDS: POLYETHYLENE GLYCOL 17 GM PACKET PO (09:13)
[2025-03-27] MEDS: PANTOPRAZOLE 40 MG TABLET PO (09:13)
[2025-03-27] MEDS: CLOPIDOGREL BISULFATE 75 MG TABLET PO (09:14)
[2025-03-27] MEDS: cefTRIAXone/D5w 1gm IV premix 1 GM/50 ML BAG IV (09:14)
[2025-03-27] MEDS: TAMSULOSIN HCL 0.4 MG CAPSULE PO (09:14)
[2025-03-27] MEDS: CITRIC ACID/SODIUM CITR 15 ML UDC (BICITRA) 30 ML PO (09:14)
--- NOTE | 2025-03-27 09:51 | PD.NEPHPROG ---
Documentation for date of: 03/27/25 Subjective Subjective Interval history: Interval history: Mr Vargas is a 79-year-old male with PMH significant for Parkinson?s disease, CAD s/p CABG and coronary stents, CKD with recurrent episodes of hyperkalemia, anemia of CKD, and recent hospitalization 3?4 weeks ago at [facility] for hyperkalemia and fluid overload, now residing at [facility]. He was sent to the ED today after outpatient labs were reviewed by reo asset manager Dr. Gordon showing worsening kidney function with concern for possible need for dialysis. He arrives with no acute complaints. He denies shortness of breath, cough, chest pain, abdominal pain, nausea, vomiting, dysuria, or urinary frequency. He reports a chronic daily headache but no new or focal neurological symptoms. He notes no recent falls. He is a poor historian; much of the history is provided by his nephew, who is also his surrogate decision-maker. Per nephew, his kidney function has been worsening for 8 months with two prior episodes of severe hyperkalemia. He recently became weaker, had swelling and difficulty ambulating, and was hospitalized at [facility] for 5 days before being transferred to [facility] 2 weeks ago. He has been treated for a UTI at the facility for the last 3?4 days. Caregivers also report increasing hallucinations and waxing/waning alertness. 03/24/25: Nephrology consulted for BARRETT on CKD. Patient is relatively new to outpatient office and unclear creatinine baseline or kidney function. Per primary team is requesting records from [facility] admission. Patient seen examined at bedside. No complaints. Denies chest pain, palpitations, urinary symptoms, abdominal pain, N/V or fever/chills. IVF, creatinine improved to 2.6 from 3.9, BUN stable elevated 81. Plan to start half NS 1 L at 75 cc/hr, Bicitra 30 mL twice daily and renal diet. 03/25/25: Patient seen and examined at bedside. Patient has no new complaints to palpation at suprapubic region with firmness. Per [facility] records, baseline creatinine 2.5. Current creatinine decreased from 3.6?3.2. GFR mildly increased from 17-19. BUN downtrending as well now 72. Pending urine culture. Ordered half normal saline at 75 cc/hr for 1L. Ordered in and out catheter with bladder scan for residual. 03/26/2025: Patient seen and examined at bedside. Patient denies any weakness, suprapubic tenderness, chest pain, shortness of breath and abdominal pain. BUN improved to 62 from 72 and creatinine unchanged at 3. NA 146. Free water deficit 1.6 L. Urine culture showed mixed tree, possible contamination. 1 L of 0.45% saline at 75 cc/h ordered. Once kidney function continues to remain stable anticipate discharge within next 24 hours to facility. 03/27/2025 patient currently seen in medical floor. Resting comfortably. He seems to be depressed. Noted to have neurogenic bladder. Merchant catheter was inserted. BUN and creatinine improving. Patient seems to be having depression. Spoke to primary team to consider antidepressants prior to discharge to rehab. Will follow-up in my office in 1 to 2 weeks Review of Systems Review of Systems Narrative Review of Systems: Denies any chest pain, shortness of breath. Admits to having depression. Admits to decreased p.o. intake Exam Vital Signs Temp Pulse Resp BP Pulse Ox O2 Del Method 36.6 C 67 17 117/65 94 L Room Air 03/27/25 08:00 03/27/25 08:00 03/27/25 08:00 03/27/25 00:00 03/27/25 08:00 03/27/25 08:00 Narrative Exam GENERAL: AOx3 mild confusion, no acute distress, Parkinsons HEENT: mucous membranes moist, bilateral sclera anicteric CARDIOVASCULAR: regular rate and rhythm, S1/S2 present, no murmurs appreciated PULMONARY: clear to auscultation bilaterally, no rales/rhonchi/wheezes ABDOMINAL: soft, non-distended, no rebound/guarding, bowel sounds present, suprapubic area nontender to palpation EXTREMITIES: no peripheral edema SKIN: warm and dry, chronic pressure ulcer intergluteal crease NEURO: CN II-XII grossly intact, no focal deficits, alert, following commands Objective Labs 03/27/25 09:34 03/27/25 09:34 Assessment & Plan Assessment and plan (1) Anemia: Status: Acute Assessment and plan: Branden Sam 79M pmhx significant for Parkinson?s disease, CAD s/p CABG and stents on Plavix, CKD, anemia in CKD, and recurrent hyperkalemia presenting from [facility] for abnormal outpatient labs concerning for BARRETT, admitted for BARRETT, UTI and early bibasilar pneumonia. #BARRETT on CKD (unclear stage) Presented to the outpatient office with elevated creatinine and BUN. Patient relatively new to outpatient service and unclear baseline of creatinine GFR BUN. Primary team requesting records from [facility]. On admission, creatinine 3.9, BUN 85, GFR 15. s/p 1L NS in ED with improvement in Cr to 3.6 and GFR 17. 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 Additional Assessment & Plan Additional Plan: Branden Vargas 79M pmhx significant for Parkinson?s disease, CAD s/p CABG and stents on Plavix, CKD, anemia in CKD, and recurrent hyperkalemia presenting from [facility] for abnormal outpatient labs concerning for BARRETT, admitted for BARRETT, UTI and early bibasilar pneumonia. #BARRETT on CKD (unclear stage) Presented to the outpatient office with elevated creatinine and BUN. Patient relatively new to outpatient service and unclear baseline of creatinine GFR BUN. Primary team requesting records from [facility] hospitalization. On admission, creatinine 3.9, BUN 85, GFR 15. s/p 1L NS in ED with improvement in Cr to 3.6 and GFR 17. Ddx: progression of CKD to ESRD vs poor PO intake vs UTI Encourage p.o. water intake. Creatinine improving. Renal leija stable for discharge. 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 Quality - progress note Quality Measures Quality Measures: VTE prophylaxis Reason for Continued Stay Reason for Continued Stay: further monitoring
[2025-03-27 10:11] LABS: Basophils # (Auto) 0.1 Thou/mm3 (0.0-0.2); Basophils % (Auto) 1 % (0-2.5); Eosinophils # (Auto) 0.1 Thou/mm3 (0.0-0.5); Eosinophils % (Auto) 1 % (0-10); Hematocrit 26.7 % (41.0-53.0); Immature Granulocytes Auto 0.06 Thou/mm3 (0.00-0.00); Lymphocytes # (Auto) 1.7 Thou/mm3 (1.0-4.8); Lymphocytes % (Auto) 16 % (10-50); Mean Corpuscular HGB Conc 32.2 g/dl (31.0-37.0); Mean Corpuscular Hemoglobin 29.6 pg (25.0-35.0); Mean Corpuscular Volume 92 fL (80-100); Monocytes # (Auto) 0.7 Thou/mm3 (0.0-0.8); Monocytes % (Auto) 7 % (0-12); Neutrophils # (Auto) 8.1 Thou/mm3 (1.8-7.7); Neutrophils % (Auto) 75 % (37-80); Nucleated Red Blood Cell # 0.00 Thou/mm3 (0.00-0.00); Nucleated Red Blood Cell % 0 /100 WBC (0); Platelet Count 538 Thou/mm3 (140-440); RDW Standard Deviation 45.0 fL (35.1-43.9); Red Blood Count 2.91 Miln/mm3 (4.50-5.90); White Blood Count 10.8 Thou/mm3 (3.8-10.6)
[2025-03-27 10:17] LABS: Hemoglobin 8.6 g/dL (13.5-16.0)
[2025-03-27 10:42] LABS: Alanine Aminotransferase 15 U/L (10-49); Albumin, Serum 3.1 gm/dL (3.4-4.8); Albumin/Globulin Ratio 1.4 (1.2-2.2); Alkaline Phosphatase 168 U/L (46-116); Anion Gap 9 (7-16); Aspartate Amino Transferase 52 U/L (0-34); BUN/Creatinine Ratio 20 Ratio (12-20); Bilirubin,Total 0.2 mg/dL (0.3-1.2); Blood Urea Nitrogen 54 mg/dL (9-23); Calcium 8.3 mg/dL (8.3-10.6); Calcium (Corrected) 9.0 mg/dL (8.5-10.1); Carbon Dioxide 20.8 mMol/L (20.0-31.0); Chloride 115 mMol/L (98-107); Creatinine (Component) 2.7 mg/dL (0.6-1.3); Globulin 2.2 gm/dL (2.3-3.5); Glucose 105 mg/dL (74-106); Magnesium 1.9 mg/dL (1.6-2.6); Osmolality,Calculated 303 (275-295); Phosphorous 2.8 mg/dL (2.4-5.1); Potassium 4.8 mMol/L (3.4-5.1); Sodium 145 mMol/L (136-145); Total Protein 5.3 gm/dL (5.7-8.2); eGFR 24 See Note
--- NOTE | 2025-03-27 11:47 | PC.SS ---
Addendum entered by Navya Young 03/27/25 12:16: ETA set for [facility] for 1300, PAMELA Garcia and Nephjulian Torre made aware Original Note: SS met with pt at bedside in regards to his DC plan pt stated to speak to his nephew Nicho Gordon. SS reached out to Nicho, who stated pt is to return to [facility] as they are actively looking for other placement. Per Nicho pt is slightly confused and he will argue but there is no other options at this time. SS reached out to Filomena at [facility] who stated they can warehouse order picker pt, they will call me when ETA is set.
[2025-03-27 12:00] VITALS: BP 95/54; PULSE 91; PULSE 98; RESP 16; TEMP 36.8; O2SAT 95
--- NOTE | 2025-03-27 12:42 | PC.NURSE ---
REPORT CALLED TO NURSE SANDOVAL AT [facility]
--- NOTE | 2025-03-27 13:27 | ESDS_ITS ---
Planned Discharge Date 03/27/25 DS: Providers Provider Date of admission: 03/23/25 18:12 Primary care physician: Gómez Holly MD Admitting Provider: Catrachito Carreno MD Attending Provider on Admission: Catrachito Carreno MD Consults: 03/23/25 17:40 Consult to Nephrology Stat Comment: Consulting Provider: Manpreet Gordon 03/23/25 18:15 Referral Wound Care Routine Comment: sacral pressure ulcer 03/23/25 18:35 PT [Referral Physical Therapy] Routine Comment: Physician Instructions: 03/24/25 15:03 Referral Nutritional Services Routine Comment: Wounds Attending Provider on DC: Catrachito Carreno MD Discharging Provider: Gia Leo MD DS: Diagnosis Problem List Completed Was Problem List Reviewed/Reconciled?: Yes Hospital Course Hospital Course Hospital course: Mr. Vargas is a 79-year-old male with a history of Parkinson?s disease, CKD (baseline Cr ~2.5), CAD s/p CABG and stents, anemia of CKD, chronic intergluteal pressure ulcer, and recent UTI, who presented from his consult visit with nephrology, Dr. Gordon who noted significantly abnormal labs concerning for acute kidney injury. Upon admission, creatinine was 3.9 and BUN 89. He was mildly hypotensive in the field. Labs also showed leukocytosis and evidence of UTI. Chest X-ray showed early bibasilar pneumonia and a 9 mm right lower lobe pulmonary nodule. Troponin was mildly elevated at 0.066 but remained stable and was attributed to impaired renal clearance. The patient denied all ischemic symptoms, EKG showed normal sinus rhythm, and no ACS workup was required. Nephrology was consulted and determined that his BRARETT was mixed prerenal + post- renal, related to dehydration, infection, and urinary retention. He was treated with gentle hydration and started on Bicitra 30 mL BID for metabolic acidosis. Kidney function improved steadily during hospitalization (creatinine down to 2.7 on discharge). The patient developed urinary retention and bladder scans showed volumes up to 1 L. An indwelling Merchant catheter was placed with good urine drainage. Renal ultrasound showed mild bilateral hydronephrosis. He was started on Tamsulosin 0.4 mg nightly for likely BPH vs Parkinson?s-related neurogenic bladder. Outpatient urology follow-up is required for a voiding trial. He was treated for complicated UTI and pneumonia with Rocephin 1 g IV daily. Urine cultures showed no growth (likely affected by prior antibiotics). Leukocytosis trended down from 14 -> 10.8. He remained afebrile and clinically stable. The anemia of CKD remained stable around Hgb 8.3. Iron studies showed deficiency, but due to concurrent infection, iron supplementation was deferred. No transfusion required. Regarding mental status, the patient remained alert and oriented. He did express significant sadness about returning to his facility, but no suicidal ideation. He was reassured, and social work was involved. He was started on Sertraline 25 mg daily for depressive symptoms, which is safe in Parkinson?s disease. Near discharge, the patient had hematuria noted in the Merchant bag. This was evaluated: the urine cleared after flushing and irrigation. The bleeding was determined to be trauma-related due to manipulation of the catheter area, leading to a minor superficial irritation. By discharge, the patient was medically stable, eating well, alert, oriented, and tolerating Merchant catheter without discomfort. Renal function, leukocytosis, and hydration status had all improved. 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 Apply Venelex ointment. Layer with calcium alginate. Skin prep to wound edges and secure with allyven dressing BID/PRN for spoiling or falling off. Side to side repositioning with wedges except meals, negative heel pressure bilaterally 2) Blanchable redness to bilateral heels: allyven dressing. Assess skin under dressing qshift, change PRN for falling off or soiling. -Recommended to follow up with PCP in 1week of discharge -Recommended to start taking zoloft 25 mg qday, tamsulosin 0.4 mg qday, and bicitra 20 ml bid for 2 weeks. -recommended to take rest of home med as perscribed. -Recommended to f/u with urologist for urinary retention and catheter change every 30 days last change was done 03/26/2025. -Recommended to f/u with clinical medical assistant Dr gordon for CKD -Recommended to come back to ED if symptoms worsen or recurr. ----- Plan discussed with attending physician Dr. Ev Leo MD PGY-1 Internal Medicine Time Spent with Patient Time attestation: Total time spent providing and/or coordinating discharge services: Time spent: Greater than 30 minutes Exam Vital Signs Temp Pulse Resp BP Pulse Ox O2 Del Method 98.2 F 98 16 95/54 L 95 Room Air 03/27/25 12:00 03/27/25 12:00 03/27/25 12:00 03/27/25 12:00 03/27/25 12:00 03/27/25 12:00 Discharge Plan Plan Patient Disposition: Xfer Skilled Nsg Fac (SNF) Patient condition on transfer: Stable Care Plan Goals: 1) Stage 3 over sacrum: cleanse with wound cleanser, pat dry. Apply Venelex ointment. Layer with calcium alginate. Skin prep to wound edges and secure with allyven dressing BID/PRN for spoiling or falling off. Side to side repositioning with wedges except meals, negative heel pressure bilaterally 2) Blanchable redness to bilateral heels: allyven dressing. Assess skin under dressing qshift, change PRN for falling off or soiling. -Recommended to follow up with PCP in 1week of discharge -Recommended to start taking zoloft 25 mg qday, tamsulosin 0.4 mg qday, and bicitra 20 ml bid for 2 weeks. -recommended to take rest of home med as perscribed. -Recommended to f/u with urologist for urinary retention and catheter change every 30 days last change was done 03/26/2025. -Recommended to f/u with clinical medical assistant Dr gordon for CKD -Recommended to come back to ED if symptoms worsen or recurr. Prescriptions/Referrals Prescriptions/Med Rec: New sodium citrate-citric acid 500-334 mg/5 mL solution 20 ml PO BID 15 Days Qty: 600 2RF tamsulosin 0.4 mg capsule 0.4 mg PO QDAY 30 Days Qty: 30 2RF sertraline [Zoloft] 25 mg tablet 25 mg PO QDAY Qty: 30 1RF ferrous sulfate [Iron (ferrous sulfate)] 325 mg (65 mg iron) tablet 325 mg PO QDAY Qty: 30 2RF sennosides-docusate sodium [Senna-S] 8.6-50 mg tablet 1 tab-cap PO QDAY PRN (Reason: constipation) Qty: 30 1RF Continued carbidopa-levodopa 25-100 mg tablet 1 tab PO TID Patient Comments: TAKE 1 BY MOUTH THREE TIMES DAILY atorvastatin [Lipitor] 40 mg tablet 40 mg PO QPM clopidogrel 75 mg tablet 75 mg PO QDAY Referrals: Gómez Holly MD [Primary Care Provider] Patient/Caregiver Discharge Instructions Education Materials: Kidney Failure Self Care, Anemia and Kidney Disease, Kidney Disease Anemia Iron, Pressure Injury Dc Print Language: [place] Stand Alone Forms: Kristina Award Info., Patient Portal Info Letter Discharge Order Discharge Orders: Discharge (Routine); Ordered 03/27/25 Ordered By: Gia Leo Quality Discharge Quality Measures VTE prophylaxis Attestestation MD Attestation I have examined the patient, reviewed labs and imaging findings, discussed the case with the resident(s), and reviewed entered orders. I agree with the plan of care as outlined in this note. Just prior to discharge patient developed mild gross hematuria which is thought to be secondary to Merchant catheter trauma as patient was attempting to sit on the edge of the bed and Merchant catheter was being pulled. Patient's Merchant catheter was flushed and already improving at the time of discharge. Patient counseled to monitor and return if any worsening bleeding. Outpatient follow-up with urology. Time Spent: [address] Ev MD
== END 2025-03-27 13:29 | disposition skilled nursing facility (03) | DRG 682 ==
LOC: SERX 17:48 → SERHOLD 18:25 → S2NX 20:01 → S3SX 03-25 03:45 → S3NX 03-26 06:24
PROVIDERS: Admitting Provider Student in an Organized Health Care Education/Training Program; Emergency Provider Family Medicine; PCP Family Medicine; Visit Provider Student in an Organized Health Care Education/Training Program
DX: N17.9 Acute kidney failure, unspecified (principal); J15.9 Unspecified bacterial pneumonia; R44.3 Hallucinations, unspecified; E87.20 Acidosis, unspecified; G20.A1 Parkinson's disease without dyskinesia, without mention of fluctuations; Z95.1 Presence of aortocoronary bypass graft; I25.10 Atherosclerotic heart disease of native coronary artery without angina pectoris; N18.9 Chronic kidney disease, unspecified; H91.90 Unspecified hearing loss, unspecified ear; R79.89 Other specified abnormal findings of blood chemistry; F32.A Depression, unspecified; E86.0 Dehydration; D63.1 Anemia in chronic kidney disease; L89.309 Pressure ulcer of unspecified buttock, unspecified stage; G90.9 Disorder of the autonomic nervous system, unspecified; I95.1 Orthostatic hypotension; D50.9 Iron deficiency anemia, unspecified; N13.6 Pyonephrosis; N31.9 Neuromuscular dysfunction of bladder, unspecified; D75.838 Other thrombocytosis; Z79.02 Long term (current) use of antithrombotics/antiplatelets; Z66 Do not resuscitate; Z79.899 Other long term (current) drug therapy; Z86.73 Personal history of transient ischemic attack (TIA), and cerebral infarction without residual deficits; Z95.5 Presence of coronary angioplasty implant and graft
CPT/HCPCS: 36415; 71045; 76770; 80053; 80061; 80074; 81001; 82607; 82746; 83540; 83550; 83735; 84100; 84443; 84484; 85025; 85610; 85730; 86331; 86635; 87081; 87086; 93005; 93225; 96361; 96365; 97162; 99284; J0696; J7030; A9270